=== PATIENT | female | born 1935 | race Caucasian/White ===

== ENCOUNTER → 2017-02-24 | Outpatient (CLI) | payer OTHER | LOC: BRMIMAGING 13:57 | PROVIDERS: ATTEND Family Medicine | DX: M81.8 Other osteoporosis without current pathological fracture (principal) ==

== ENCOUNTER → 2017-12-09 | Outpatient (CLI) | payer OTHER | LOC: CIMAGING 15:25 | PROVIDERS: ATTEND Family Medicine | DX: R07.81 Pleurodynia (principal) | CPT/HCPCS: 71101-PO ==

== ENCOUNTER → 2018-07-14 | Outpatient (CLI) | payer OTHER | LOC: FIMAGING 11:59 | PROVIDERS: ATTEND Internal Medicine Hematology & Oncology | DX: M81.0 Age-related osteoporosis without current pathological fracture (principal); D47.2 Monoclonal gammopathy; M50.322 Other cervical disc degeneration at C5-C6 level; M41.84 Other forms of scoliosis, thoracic region; M43.14 Spondylolisthesis, thoracic region; M51.36 Other intervertebral disc degeneration, lumbar region; M51.37 Other intervertebral disc degeneration, lumbosacral region; M19.012 Primary osteoarthritis, left shoulder; M19.011 Primary osteoarthritis, right shoulder; M19.042 Primary osteoarthritis, left hand; M19.041 Primary osteoarthritis, right hand; M17.11 Unilateral primary osteoarthritis, right knee; M11.261 Other chondrocalcinosis, right knee; M19.071 Primary osteoarthritis, right ankle and foot ==

== ENCOUNTER → 2018-09-22 | Outpatient (CLI) | payer OTHER | LOC: CIMAGING 15:00 | PROVIDERS: ATTEND Family Medicine | DX: R06.02 Shortness of breath (principal); D47.2 Monoclonal gammopathy; M89.8X1 Other specified disorders of bone, shoulder | CPT/HCPCS: 71046-PO ==

== ENCOUNTER 2019-01-12 12:49 | Inpatient (IN) | payer OTHER ==
[2019-01-12] MEDS ORDERED: ONDANSETRON DISINTEGRATING 4 MG TAB PO PRN (13:06)
[2019-01-12] MEDS ORDERED: ONDANSETRON 4 MG/2 ML VIAL IVP PRN (13:06)
--- NOTE | 2019-01-12 13:12 | PDGENHP ---
<Mera Christensen - Last Filed: 01/12/19 15:13> History and Physical - Chief Complaint Multiple myeloma, intractable neuropathy BLE - History of Present Illness 83 y/o female w/recently diagnosed (June 2018) stage I IgG lambda, HTN, paroxysmal atrial fibrillation and chronic diastolic congestive heart failure is directly admitted from [facility] experiencing intractable thigh pain and new weakness. She reports to me for the last few weeks, she experiences anterior bilateral thigh soreness w/severity of 5-6/10 usually occurring at nighttime, occasionally the soreness migrates to her knees. She rubs her legs which feels good but does not relieve the soreness and she has difficulty falling asleep because it causes restless legs. She has tried several OTC medication to alleviate w/no success including Tylenol PM, ibuprofen, Benadryl. Her leg strength has also diminished to the point where she lives a sedentary lifestyle and requires a wheelchair to get around instead of her usual walker. Denies any trauma or falls within the last few weeks. Denies saddle paraesthesia, urinary incontinence, diarrhea or constipation. She does have a history of neuropathy in her hands and feet but this problem is new. She tried gabapentin for a week recently and has not noticed any differences. She did not try the suggested alpha lipoic acid. Denies CP, palpitations, nausea, vomiting, fever. Today at [facility], she did not take Velcade and was told to not take Revlimid today. In November of this year, she had c/o JONES. She was evaluated by her kelp gatherer, Dr. Tabares, who ultimately did not believe JONES was cardiac related and most likely r/t treatment for multiple myeloma and/or deconditioned. Echo in September 2018 revealed LVEF 65%, moderate LVH w/diastolic dysfunction, mild- moderate MR w/o MV prolapse, mild TR and estimated normal PA pressures. On January 05, 2019, she was at [facility] for cycle 6-day 15 of Velcade chemotherapy. She was on her off week of Revlimid and restarted it on January 08. She takes Revlimid days 1-14 of a 21-day cycle. She had c/o increasing BLE peripheral neuropathy w/ her bed sheets bothering the top of her feet. Velcade was held 2/ 2 neuropathy complaints. She was started on gabapentin @ and suggested to supplement w/ alpha lipoic acid. She is being admitted for further work-up, treatment and monitoring. History Information - Allergies/Home Medication List Allergies/Adverse Reactions: Penicillins Allergy (Verified 01/12/19 14:29) Unknown Home Medications: Levothyroxine [Synthroid 75 mcg (*)] 75 mcg PO DAILY06 11/25/13 [Last Taken ] Aspirin [Aspirin 81mg (*)] 81 mg PO DAILY 01/12/19 [Last Taken 01/12/19] C/E/Zn/Cu/OM3/DHA/EPA/LUT/ZEAX [Preservision Areds 2 Softgel] 1 each PO BID [Last Taken 01/12/19] Calcium Carb W/Vit D [Calcium Carb W/Vit D 500/200 (*)] 500 mg PO DAILY@12 01/12 [Last Taken 01/11/19] Cholecalciferol Vit D3 [Vitamin D3 (*)] 1,000 units PO DAILY 01/12/19 [Last Taken 01/12/19] Furosemide [Lasix 20 MG (*)] 30 mg PO DAILY 01/12/19 [Last Taken 01/12/19] Gabapentin [Neurontin 100 MG (*)] 200 mg PO HS 01/12/19 [Last Taken 01/11/19] Lenalidomide [Revlimid] 15 mg PO AD@12 01/12/19 [Last Taken 01/11/19] Losartan Potassium [Cozaar 25 mg (*)] 25 mg PO DAILY 01/12/19 [Last Taken ] Metoprolol Succinate Xr [Toprol Xl 100 mg (*)] 200 mg PO DAILY 01/12/19 [Last Taken 01/12/19] I have personally reviewed and updated: family history, medical history, social history, surgical history - Past Medical History atrial fibrillation (PAF), cancer (Stage I IgG lambda), CHF (Diastolic), osteoporosis - Surgical History Reports: hysterectomy Additional surgical history: Left hip fx w/ repair last year. Left ankle and wrist fx - Family History Positive for: CAD, hypertension - Social History Smoking Status: Never smoked Alcohol Use: Rarely Drug Use: None Additional social history: Lives in [place], [place]. . 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 Reviewed past records from Dr. Connor and Dr. Tabares. Constitutional: no apparent distress, appears nourished, uncomfortable Eyes: PERRL, anicteric sclera, EOMI Ears, Nose, Mouth, Throat: moist mucous membranes, hearing normal, ears appear normal, no oral mucosal ulcers Cardiovascular: regular rate and rhythym, no murmur, rub, or gallop, No edema Peripheral Pulses: 2+: dorsalis-pedis (R) (Radial 2+), dorsalis-pedis (L) ( Radial 2+) Respiratory: no respiratory distress, no rales or rhonchi, clear to auscultation Gastrointestinal: soft, non-tender abdomen, no palpable masses, other ( Hypoactive BS) Genitourinary: no bladder fullness, no bladder tenderness Skin: warm, normal color, no rashes or abrasions, no fluctuance, no induration, No mottled Musculoskeletal: muscular tenderness (Described as soreness but feels good when she massages the area. Massaging the area does not alleviate the soreness.), generalized weakness (Bilateral lower extremities L > R weakness. +DF/PF, able to wiggle toes, has normal sensation to BLE. Unable to perform straight leg raises, weak dustin knee flexion) Neurologic: AAOx3, weakness (BLE weak quad strength motor strength L 2/5, R 3/ 5. BUE intact motor strength 5/5. ), CN II-XII Intact Psychiatric: interacting appropriately, not anxious, not encephalopathic, thought process linear Lymph, Heme, Immunologic: no cervical LAD, no supraclavicular LAD Assessment & Plan Assessment: 83 y/o female presenting as a direct admit from [facility] w/ progressively worsening bilateral anterior thigh soreness, severity 5-6/10 usually occurring at nighttime and causing sleepless nights d/t restless legs and bilateral lower extremity weakness to the point where a wheelchair is needed instead of her usual walker. It was initially thought Velcade was the culprit however one week after skipping a dose, she continues to be symptomatic. She is hemodynamically stable w/vitals of BP 102/40, HR 55, Resp 16, 95% RA, 36.4c #Multiple myeloma #Iron-deficient anemia #Bilateral lower extremity pain and weakness #Osteoporosis #PAF #HTN #Diastolic CHF Plan: -MRI Lumbar w/wo IV contrast to r/o infection, mass, inflammation as cause of bilateral lower extremity weakness -PT/OT to evaluate and treat -Oncology consult; Dr. Connor w/ evaluate pt tomorrow -CBC/CMP in AM and Magnesium chem now -Daily weight -Cont all home medications except for Revlimid, Losartan, Metoprolol. She has been on Revlimid since August 2018 and her problem began a few weeks ago which I do not believe there is a correlation and Revlimid is the culprit however I will hold the medication from the recommendation of Dr. Connor. It appears she started on Losartan on 12/07/18 and began having symptoms shortly after. A possible side effect is asthenia. She took Losartan today. Initial vitals BP is hypotensive and bradycardic therefore I am holding her metoprolol in the AM. However, if throughout the night and into AM her vitals improve, metoprolol may be initiated. -She received 1 dose of Feraheme for iron-deficient anemia on 01/05/19 -In regards to her PAF, she was on Xarelto but stopped 8-10 months ago. PAF was believed to be brought on by complications of her left hip fx and surgery which subsequently became infected where she needed to stay 3 months in SNF. She does take ASA 81 mg. -Pain management PO w/ Tylenol and gabapentin -Trazodone @ HS to help w/sleep Diet: Cardiac VTE ppx: Lovenox subq Code: Full Dispo: Admit to inpatient <Berto Parr - Last Filed: 01/12/19 22:49> History and Physical - History of Present Illness Review of Systems Review of Systems: Physical Exam Physical Exam: Temp Pulse Resp BP Pulse Ox 36.6 C 53 L 18 134/54 H 94 01/12/19 19:29 01/12/19 19:29 01/12/19 19:29 01/12/19 19:29 01/12/19 19:29 Lab Data & Imaging Review 01/12/19 19:30 Hct 33.8 % (38.0-47.0) L 01/12/19 19:30 ESR 2 MM/HR (0-30) 01/12/19 19:30 Magnesium 2.1 mg/dL (1.6-2.3) 01/12/19 19:30 Creatine Kinase 38 IU/L (0-156) 01/12/19 19:30 C-Reactive Protein < 5.0 mg/L (<10.0) 01/12/19 19:30 Assessment & Plan Assessment: I have seen the patient and reviewed with Linda Christensen VALIDATION SCIENTIST today. I agree with Ms Christensen's assessment except for one detail: The patient does have bilateral anterior thigh pain present for 3 weeks, but her weakness is only in the L quadraceps group and this weakness has been present for 1 year +. We have ruled out spine and hip joint related causes of the new pain. The cause is still under investigation.
--- NOTE | 2019-01-12 16:01 | ASMTCMCOM ---
CM Note CM Note Notes: Chart reviewed for discharge planning purposes. Patient is admitted with bilateral neuropathic pain in anterior thighs and restless leg syndrome and lower extremity weakness. Normally lives with her . Has declines from walker ti wheelchair. Needs to be determined. Plan: TBD Date Signed: 01/12/2019 04:01 PM Electronically Signed By:Latonya Barros RN
[2019-01-12] MEDS ORDERED: GADOBUTROL 10 ML VIAL IVP ONE (16:18)
[2019-01-12] MEDS: CALCIUM CARB W/VIT D 500 MG TAB PO SCH (17:21)
[2019-01-12 20:03] LABS: CREATINE KINASE 38 IU/L (0-156)
[2019-01-12] MEDS ORDERED: GABAPENTIN 100 MG CAP PO SCH (21:00)
[2019-01-12] MEDS: traMADol 50 MG TAB PO PRN (21:39)
[2019-01-12] MEDS: traZODone 50 MG TAB PO SCH (21:40)
[2019-01-12] MEDS: PRESERVISION AREDS2 FORMULA EYE VIT 1 EACH PO SCH (21:41)
--- NOTE | 2019-01-12 23:03 | HOSPPROG ---
Hospitalist Progress Note Assessment/Plan: This patient is admitted with 3 weeks of gradually worsening bilateral anterior thigh pain. The pain is making mobility very difficult for her. She describes a "stretching, cramping sensation" that waxes and wanes, and is aggravated by being up on her feet to a degree. There is nothing that sounds like a neuropathic pain. There is no pain elsewhere, there is no fever, and there was no injury. No abd, bladder, or bowel symptoms. There is no new weakness associated with this pain. Notably she has chronic L quadraceps weakness present for > 1 year, related to previous surgeries for infected knee arthroplasty. No other new symptoms. My exam shows evidence of the marked L quadraceps weakness which is chronic, but no other weakness. There is no palpable or visible soft tissue abnormality that explains her bilateral thigh pain, and the joints are only remarkable for chronic DJD/surgical changes. I found no shoulder weakness or tenderness MRI has been done of LS spine and there is some bilateral SI joint arthropathy - ? if this could be causing spine pain. There is minimal degenerative disc dz and no sign of nerve impingement (her pain does NOT sound neuropathic). XRays of the hips show some DJD but no avascular necrosis or signs of infection (she has myeloma and has had some steroid) ASSESSMENT: -Bilateral Anterior Thigh Pain, described as crampy, stretching sensation Diff Dx: -SI arthropathy? unlikely but SI pain can refer to thighs -Polymyalgia Rheumatica? possible but shoulders currently unaffected; evaluation with ESR could be misleading w her Myeloma -Myositis? seems unlikely but hard to rule out at present PLANS: -check ESR and CRP, but interpret with caution in setting of myeloma -check CPK -[facility] has asked for neurology consult -an orthopedic consult may also be helpful Objective: Vital Signs Temp Pulse Resp BP Pulse Ox 36.6 C 53 L 18 134/54 H 94 01/12/19 19:29 01/12/19 19:29 01/12/19 19:29 01/12/19 19:29 01/12/19 19:29 Laboratory Results 01/12/19 19:30 01/11/19 01/12/19 01/13/19 06:59 06:59 06:59 Intake Total 100 Balance 100 ICD10 Worksheet Patient Problems: Problems Problem Status Onset Leg pain Acute - ICD10 Problem Qualifiers (1) Leg pain
[2019-01-13] MEDS: ACETAMINOPHEN 325 MG TAB PO PRN ×2 (01:20→08:53)
[2019-01-13] MEDS: traMADol 50 MG TAB PO PRN ×2 (03:47→16:40)
[2019-01-13 04:15] LABS: PLATELET COUNT 201 10^3/uL (150-400)
[2019-01-13] MEDS: LEVOTHYROXINE 75 MCG TAB PO SCH (05:55)
[2019-01-13] MEDS: ENOXAPARIN 40 MG/0.4 ML SYR SC SCH (08:49)
[2019-01-13] MEDS: FUROSEMIDE 20 MG TAB PO SCH (08:49)
[2019-01-13] MEDS: ASPIRIN 81 MG CHEWABLE TAB PO SCH (08:49)
[2019-01-13] MEDS: CHOLECALCIFEROL VIT D3 1,000 UNITS TAB PO SCH (08:49)
[2019-01-13] MEDS: PRESERVISION AREDS2 FORMULA EYE VIT 1 EACH PO SCH ×2 (08:49→21:21)
[2019-01-13] MEDS ORDERED: METOPROLOL SUCCINATE XR 100 MG TAB PO SCH (09:00)
[2019-01-13] MEDS: LOSARTAN POTASSIUM 25 MG TAB PO SCH (10:53)
[2019-01-13] MEDS: CALCIUM CARB W/VIT D 500 MG TAB PO SCH (11:58)
--- NOTE | 2019-01-13 12:10 | GCON ---
[f rep st] CONSULTATION HEMATOLOGY/ONCOLOGY CONSULTATION NOTE. DATE OF CONSULTATION: 01/13/2019 REASON FOR CONSULTATION: History of multiple myeloma, admitted with increasing bilateral leg pain. HISTORY OF PRESENT ILLNESS: The patient is a very pleasant, 83-year-old female who was diagnosed wit h an IgG lambda multiple myeloma in June of 2018. This was initially identified when she was be ing evaluated for hypercalcemia which eventually resolved with cessation of calcium supplements, but additional lab workup revealed a monoclonal protein of the IgG lambda type, measuring 3.4 g/dL. Bone marrow biopsy at that time showed 40% cellularity with 50% of the cells consistent with a lambda res tricted clonal population. 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 There was a small foci suspicious but not diagnostic for amyloid deposition. UPEP showed normal 24 hour protein at 224 mg with an IgG lambda of 94 mg. A skeletal survey showed diffu se osteoporosis with mottled lucency, but there were no discrete lytic lesions. She was started on a "RVD-lite" in August of 2018. This is a modified regimen with Revlimid, Velcade, and dexamethason e that is dose reduced for the elderly. Within the 1st few weeks of treatment, she developed signifi cant fluid retention and was felt to have volume overload consistent with diastolic dysfunction, like ly precipitated by the steroids. She was seen in consultation by Dr. Feliz and started on Lasix diu retic. The cardiac issues have not been an issue since. She was started on monthly Zometa in [facility]. Approximately 3 weeks ago, patient started developing significant bilateral thigh pain. She describe s it worse at night. The pain has progressively gotten more severe. It has now extended down to the knee. It does not appear to be classic for peripheral neuropathy in that it did not start initially in the feet and move up. She has chronic left thigh and quadriceps weakness due to prior left knee replacement with infected left knee arthroplasty. She has typically been using a walker, but more re cently has not been able to even move through the house. In part, she describes having weakness due to the pain. She has had no fevers or chills. She was to receive Velcade last week, but due to conc herrera that this could represent some type of an atypical neuropathy that was discontinued. She has bee n on Revlimid 15 mg day 1 through 14 with 1 week off. She denies any chest pain or shortness of yariel th. She was seen in the office yesterday and due to increasing bilateral thigh pain and difficulty ambula ting, she was admitted for further evaluation. Of note, she was started on low-dose gabapentin a week ago, taking 200 mg at night. That has not see med to be of any benefit. The dexamethasone dose as part of the regimen is 20 mg once a week. PAST MEDICAL HISTORY: Osteoporosis, bilateral hearing loss, psoriasis, diastolic dysfunction, infect ed left knee arthroplasty. PAST SURGICAL HISTORY: Cataract surgery, total left knee replacement in January 2015, femur fracture r epair in September of 2015, removal of a large lipoma from her left axilla in 2012. Prior hysterectom y, cholecystectomy, appendectomy, and . FAMILY HISTORY: Noncontributory. SOCIAL HISTORY: She is to Ed. She does not smoke cigarettes and she drinks alcohol rarely. She and Ed live in [place]. 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 REVIEW OF SYSTEMS: A 10-point review of systems is negative other than noted in HPI. PHYSICAL EXAM: GENERAL: She is very uncomfortable appearing female. HEENT: Pupils are equal. HEA RT: Regular rate. LUNGS: Clear to auscultation. ABDOMEN: Soft, nontender. NEURO: Generalized w eakness, left hip flexor more weak than the right. She has normal sensation in her lower extremities . LYMPHS: No adenopathy. IMPRESSION: This is an 83-year-old female diagnosed with an IgG lambda multiple myeloma last fall, r eceiving therapy with Velcade, Revlimid, and dexamethasone, who now presents with increasing bilatera l thigh pain. With regard to the myeloma, patient has had an excellent response and generally has to lerated therapy quite well. The most recent M spike measured 0.7 g/dL, down from 3.4 g/dL. The etiology of the bilateral thigh pain is unclear. This would be an atypical presentation for Velc kishan induced peripheral neuropathy. It is also much less common when given in the subcutaneous form, which is the way that she has been receiving it. This would also be an unusual side effect of the Re vlimid. Lumbar MRI does not show any obvious explanation for her symptoms. Neurology has been consu lted. There is no evidence of a myositis with a normal CPK. For now, we will hold the Revlimid, the dexamethasone and continue to hold the Velcade. We will cont inue to follow along with you. /[id number]/MODL
--- NOTE | 2019-01-13 14:01 | HOSPPROG ---
Hospitalist Progress Note Assessment/Plan: This patient is admitted with 3 weeks of gradually worsening bilateral anterior thigh pain. The pain is making mobility very difficult for her. She describes a "stretching, cramping sensation" that waxes and wanes, and is aggravated by being up on her feet to a degree. There is nothing that sounds like a neuropathic pain. There is no pain elsewhere, there is no fever, and there was no injury. No abd, bladder, or bowel symptoms. There is no new weakness associated with this pain. Notably she has chronic L quadraceps weakness present for > 1 year, related to previous surgeries for infected knee arthroplasty. MRI has been done of LS spine and there is some bilateral SI joint arthropathy - ? if this could be causing spine pain. There is minimal degenerative disc dz and no sign of nerve impingement (her pain does NOT sound neuropathic). XRays of the hips show some DJD but no avascular necrosis or signs of infection (she has myeloma and has had some steroid) ESR and CRP are unremarkable ASSESSMENT: -Bilateral Anterior Thigh Pain, described as crampy, stretching sensation Diff Dx: -SI arthropathy? unlikely but SI pain can refer to thighs -Polymyalgia Rheumatica? possible but shoulders currently unaffected; evaluation with ESR could be misleading w her Myeloma -Myositis? seems unlikely but hard to rule out at present PLANS: -wait neurology consult -PT/OT -consider ortho consult Subjective: no cp or sob. no n/v. still with anterior thigh pain worse at night Objective: Vital Signs Temp Pulse Resp BP Pulse Ox 36.3 C 59 L 16 156/77 H 95 01/13/19 11:14 01/13/19 11:14 01/13/19 11:14 01/13/19 11:14 01/13/19 11:14 Laboratory Results 01/13/19 04:00 01/13/19 04:00 01/12/19 01/13/19 01/14/19 05:59 05:59 05:59 Intake Total 300 Output Total 420 Balance 300 -420 - Physical Exam Constitutional: no apparent distress Eyes: PERRL, EOMI Ears, Nose, Mouth, Throat: moist mucous membranes, hearing normal Cardiovascular: regular rate and rhythym, No edema Respiratory: no respiratory distress, no rales or rhonchi, clear to auscultation Gastrointestinal: normoactive bowel sounds Skin: warm Neurologic: AAOx3 Psychiatric: interacting appropriately, not anxious, not encephalopathic Lymph, Heme, Immunologic: No petechiae ICD10 Worksheet Patient Problems: Problems Problem Status Onset Leg pain Acute
--- NOTE | 2019-01-13 15:11 | GCON ---
[f rep st] CONSULTATION REFERRING PHYSICIAN: Berto Parr MD 2ND REFERRING PHYSICIAN: Dr. Eliane Connor. HISTORY: The patient is an 83-year-old with history of myeloma, congestive heart failure and atrial fibrillation and some other complex orthopedic problems affecting mainly the left leg. She is here i the hospital for intractable pain in the legs that has been present over the last 4 to 6 weeks, at least. She started her chemotherapy treatments in August with Revlimid and has also been treated w ith Velcade with a 6-day cycle initiated January 05. On the , she received Revlimid, but that is n ow currently being held for the question of whether it might be contributing to this syndrome. She s ays that there is pain 09/05, which is rather disabling, and predominantly in the anterior thighs, but can be around the knees and then sometimes radiate to the anterior leg, which she says feels like sh in splints. It can be very difficult at night, particularly, and interrupts sleep. She is getting v pauly limited sleep and her mobility has declined in association with this increasing pain. She has ch ronic left leg weakness in the quadriceps since having a femur fracture and complex issues related to that and multiple surgeries and basically has a very limited left quadriceps function. That is not new. What is more difficult now is getting up from seated positions and more weakness in the legs wi thout clear effects in the upper extremities. She does not feel so much as she has lost sensation. Although she has been noted to have some mild n europathy, it has not been prominent in terms of distal weakness or distal sensory loss. No change i n bowel or bladder function. She has had MRI of the lumbar spine, which reveals some mild degenerati ve changes but no significant central or foraminal stenoses. She is on some low doses of tramadol and gabapentin currently 200 mg a day and really is getting no r elief. Tylenol is not helping. Her says she is eating this like candy without benefit. CURRENT MEDICATION: Aspirin, Lovenox, Lasix, gabapentin 200 mg at night. Tramadol 50 mg every 6 berta rs as needed for pain. PHYSICAL EXAM: VITAL SIGNS: Blood pressure is 173/77, heart rate of 58, respirations 16, temperatur e 36.6. GENERAL: She is sitting in the chair in no acute distress, although she says there is still some significant pain. She is able to communicate effectively without cognitive impairment. There is wasting of the left quadriceps, which is severe and associated severe weakness with essentially on ly trace movements and cannot overcome gravity on the left quadriceps testing. Left hip flexion stre ngth is in the 3/5 to 4/5 range. Distal strength in the left lower extremity is a solid 4/5 and at l east that or greater in the right dorsiflexion and plantar flexion as well as the right quadriceps an d hip flexion, although there is some mild weakness there. Her adductor strength is strong, 4/5, as well as abduction. Gluteus and hamstring strength is 4/5 bilaterally. She has loss of vibration at the left great toe, but preserved on the right. There is a mild distal deficit for pinprick or tempe rature, but not profound. Reflexes are absent. No Babinski signs. Her sedimentation rate is 2. The C-reactive protein is less than 5. CK level is 38. Otherwise unre markable electrolytes. IMPRESSION: Total unit time of 50 minutes. The patient has myeloma and subacute and persisting pain syndrome in the femoral distribution predominantly of both legs, and weakness which is chronic in th e proximal left lower extremity, and some increasing weakness in the right lower extremity as well wi thout a definitive explanation for this precise syndrome. The MRI rules out a structural lesion. Th e degree of peripheral neuropathy she has in the distal lower extremities is fairly mild. The relati vely profound degree of neuropathic pain likely reflects some toxicity from 2 known neurotoxic drugs that she has received in her chemotherapy with the Velcade and Revlimid. The atypical aspect is the fact that it is not in the more distal, classic peripheral nerve distribution and following more of a femoral distribution. I will look in the literature to see if there are any comments on having femo ral or plexitis syndromes in a case like this, but either way, I think it is appropriate to hold the drugs for now, if possible, to see if there can be some improvement. Her greatest complaint is pain and this is causing severe disability and now making her less active and she is at risk of progressiv e weakness from relative inactivity. She is also becoming sleep deprived. I think her dosing can sa jazzy be significantly increased on a gradual basis and titrating towards adequate pain relief. Paulinaev er, I would recommend the tramadol be 1 or 2 tablets 3 times a day as needed for pain. I also think the gabapentin should be converted to 300 mg 3 times a day, but do this also gradually. Even that is not a high dose and might be needed to help control the symptoms as she hopefully will improve gradu ally and be able to do more physical activity. As an outpatient, I can do EMG to see if there is any thing more specific about this. As Dr. Parr very carefully assessed, there is a question of whethe r it is true neuropathic pain or may be related to joints and connective tissue related issues, but w e do not see anything specifically to explain that and sedimentation rate and C-reactive protein are normal. CK is normal. I do not think it is a primary inflammatory myopathy. /[id number]/MODL
[2019-01-13] MEDS: GABAPENTIN 100 MG CAP PO SCH ×2 (15:49→21:20)
[2019-01-13] MEDS: traZODone 50 MG TAB PO SCH (21:21)
[2019-01-14] MEDS: traMADol 50 MG TAB PO PRN ×2 (02:08→10:41)
[2019-01-14] MEDS: ACETAMINOPHEN 325 MG TAB PO PRN (05:09)
[2019-01-14] MEDS: LEVOTHYROXINE 75 MCG TAB PO SCH (05:09)
[2019-01-14] MEDS: LOSARTAN POTASSIUM 25 MG TAB PO SCH (08:33)
[2019-01-14] MEDS: CHOLECALCIFEROL VIT D3 1,000 UNITS TAB PO SCH (08:34)
[2019-01-14] MEDS: PRESERVISION AREDS2 FORMULA EYE VIT 1 EACH PO SCH ×2 (08:34→21:12)
[2019-01-14] MEDS: FUROSEMIDE 20 MG TAB PO SCH (08:34)
[2019-01-14] MEDS: GABAPENTIN 100 MG CAP PO SCH ×3 (08:34→21:13)
[2019-01-14] MEDS: ASPIRIN 81 MG CHEWABLE TAB PO SCH (08:34)
--- NOTE | 2019-01-14 09:31 | NEUROPROG ---
Assessment: Today's 25 min visit was predominantly counseling regarding her condition and management strategies for this neuropathic pain syndrome in the setting of multiple myeloma which is responding to chemotherapy but presumably has neuropathic consequences from the toxicity of the agents. The MRI did not reveal any evidence of myeloma specific lesions or compressive lesions in the lumbosacral spine or cauda equina. Microscopic changes cannot be definitively ruled out. She has tolerated the increased dosage of gabapentin but is not getting definite benefit yet, so I will increase the dosage to 300 mg 3 times per day. She is encouraged to continue the tramadol 100 mg 3 times per day. I do not have a definitive answer as to how quickly we can control this or the exact prognosis at this stage and we will see how she response to these medications. Again, I am happy to see her in follow-up as an outpatient to continue to try to help her. If additional assistance is needed during this hospitalization, please contact my colleague who will be coming research instrumentation technician tomorrow , Dr. Henao. You can also contact me with any questions directly. Subjective: The patient is reporting that she slept from about 930 until 2 in the morning with fairly good pain control but developed rather intractable pain during the night in the legs and the pain can go all the way down to the feet, mainly in the dorsum. There is not new weakness. She ambulated yesterday using her walker with therapy and felt that she was probably walking a little bit better than she has. If she stays fairly still, the degree of pain is sometimes a little less. She still has some problem with urinary incontinence which isn't a new issue. Objective: Vital Signs Temp Pulse Resp BP Pulse Ox 36.5 C 64 16 166/78 H 92 01/14/19 08:26 01/14/19 08:26 01/14/19 08:26 01/14/19 08:33 01/14/19 08:26 Laboratory Results 01/13/19 04:00 01/13/19 04:00 01/13/19 01/14/19 01/15/19 05:59 05:59 05:59 Intake Total 300 600 Output Total 520 Balance 300 80 She continues to have a reflexia with the same degree of weakness as before and diminished sensation but not profound sensory loss. Allergies/Adverse Reactions: Penicillins Allergy (Verified 01/12/19 14:29) Unknown
[2019-01-14] MEDS: ENOXAPARIN 40 MG/0.4 ML SYR SC SCH (09:42)
--- NOTE | 2019-01-14 10:26 | PDMN ---
Medical Necessity Medical necessity: [facility] [place] [facility] musculoskeletal disease: - 83yoF with PMHX: mult myeloma- receiving tx presently- osteoporosis, bilat hearing loss, psoriasis, diastolic dysfunction, infected L knee arthroplasty presents with 3 weeks sig. bilat thigh pain. extends down to knee -unable to ambulate thru her house. onc. consult, neurology consult, ortho consult anticipate > 2 MN ongoing med nec care- further monitoring eval and tx. PT,OT
[2019-01-14] MEDS: CALCIUM CARB W/VIT D 500 MG TAB PO SCH (12:36)
--- NOTE | 2019-01-14 13:45 | HOSPPROG ---
Hospitalist Progress Note Assessment/Plan: This patient is admitted with 3 weeks of gradually worsening bilateral anterior thigh pain. The pain is making mobility very difficult for her. She describes a "stretching, cramping sensation" that waxes and wanes, and is aggravated by being up on her feet to a degree. There is nothing that sounds like a neuropathic pain. There is no pain elsewhere, there is no fever, and there was no injury. No abd, bladder, or bowel symptoms. There is no new weakness associated with this pain. Notably she has chronic L quadraceps weakness present for > 1 year, related to previous surgeries for infected knee arthroplasty. MRI has been done of LS spine and there is some bilateral SI joint arthropathy - ? if this could be causing spine pain. There is minimal degenerative disc dz and no sign of nerve impingement (her pain does NOT sound neuropathic). XRays of the hips show some DJD but no avascular necrosis or signs of infection (she has myeloma and has had some steroid) ESR and CRP are unremarkable ASSESSMENT: -Bilateral Anterior Thigh Pain, described as crampy, stretching sensation Diff Dx: -SI arthropathy? unlikely but SI pain can refer to thighs -Polymyalgia Rheumatica? possible but shoulders currently unaffected; evaluation with ESR could be misleading w her Myeloma -Myositis? seems unlikely but hard to rule out at present, CK WNL during admission PLANS: - Neurology consulted, increased Gabapentin to 300 TID today, continue Tramadol q6 hours -PT/OT recommending home care Dispo: Pending clinical course Subjective: Patient reports pain in b/l LE Objective: Vital Signs Temp Pulse Resp BP Pulse Ox 36.5 C 64 16 166/78 H 92 01/14/19 08:26 01/14/19 08:26 01/14/19 08:26 01/14/19 08:33 01/14/19 08:26 Laboratory Results 01/13/19 04:00 01/13/19 04:00 01/13/19 01/14/19 01/15/19 05:59 05:59 05:59 Intake Total 300 600 360 Output Total 520 Balance 300 80 360 - Physical Exam Constitutional: no apparent distress Eyes: PERRL Ears, Nose, Mouth, Throat: moist mucous membranes Cardiovascular: regular rate and rhythym Respiratory: no respiratory distress Gastrointestinal: soft, non-tender abdomen Skin: warm Musculoskeletal: full muscle strength Neurologic: AAOx3 Psychiatric: interacting appropriately ICD10 Worksheet Patient Problems: Problems Problem Status Onset Leg pain Acute Neuropathy associated with cancer Acute
--- NOTE | 2019-01-14 14:11 | SOAPPROG ---
SOAP Progress Note Assessment/Plan: Assessment: 1. Bilateral thigh pain-likely unusual presentation of neuropathy, either secondary to velcade or revlimid. 2. Mulitple myeloma-has had good response to RVD-lite. Plan: 1. Gabapentin and tramadol increase. 2. Will hold myeloma therapy for now. 3. Anemia-multifactorial. no indication for transfusion 01/14/19 14:09 01/14/19 14:11 Subjective: slept well until 2 AM, but up with severe pain after that. Objective: Vital Signs Temp Pulse Resp BP Pulse Ox 36.5 C 64 16 166/78 H 92 01/14/19 08:26 01/14/19 08:26 01/14/19 08:26 01/14/19 08:33 01/14/19 08:26 Laboratory Results 01/13/19 04:00 01/13/19 04:00 01/13/19 01/14/19 01/15/19 05:59 05:59 05:59 Intake Total 300 600 360 Output Total 520 Balance 300 80 360 Physical Exam - Physical Exam General Appearance: alert, no apparent distress Neck: supple Respiratory: lungs clear Abdomen: soft Extremities: No pedal edema ICD10 Worksheet Patient Problems: Problems Problem Status Onset Leg pain Acute Neuropathy associated with cancer Acute
--- NOTE | 2019-01-14 17:48 | ASMTCMCOM ---
CM Note CM Note Notes: Patient discussed during clinical rounds, neuro to consult. PT/OT recommending Home Care. CM to follow. D/C plans: HC Date Signed: 01/14/2019 05:48 PM Electronically Signed By:Christin Scales
[2019-01-14] MEDS: traZODone 50 MG TAB PO SCH (21:12)
[2019-01-15] MEDS: LEVOTHYROXINE 75 MCG TAB PO SCH (06:36)
[2019-01-15] MEDS: traMADol 50 MG TAB PO PRN ×2 (06:36→11:29)
[2019-01-15 07:47] VITALS: BP 159/79
[2019-01-15] MEDS: PRESERVISION AREDS2 FORMULA EYE VIT 1 EACH PO SCH (08:25)
[2019-01-15] MEDS: GABAPENTIN 100 MG CAP PO SCH (08:25)
[2019-01-15] MEDS: FUROSEMIDE 20 MG TAB PO SCH (08:25)
[2019-01-15] MEDS: LOSARTAN POTASSIUM 25 MG TAB PO SCH (08:25)
[2019-01-15] MEDS: CHOLECALCIFEROL VIT D3 1,000 UNITS TAB PO SCH (08:25)
[2019-01-15] MEDS: ASPIRIN 81 MG CHEWABLE TAB PO SCH (08:25)
[2019-01-15] MEDS: ENOXAPARIN 40 MG/0.4 ML SYR SC SCH (08:48)
--- NOTE | 2019-01-15 11:07 | ASMTLACE ---
LACE Length of stay for Answers: 2 days current admission Comorbidities - select Answers: Any tumor (including all that apply lymphoma or leukemia) Score: 4 Date Signed: 01/15/2019 11:03 AM Electronically Signed By:Latonya Barros RN
--- NOTE | 2019-01-15 11:11 | PDIAF ---
- Diagnosis Diagnosis: B/l muscle weakness Code Status: Full Code - Medication Management Discharge Medications: electronically signed and located in the Home Medication List. - Orders Services needed: Home Care, Physical Therapy, Occupational Therapy Home Care Face to Face: I certify that this patient was under my care and that I had the required [id number] encounter meeting the encounter requirements on the discharge day. My findings support the fact that the patient is homebound as defined in Home Care Face to Face Continued: CMS Chapter 7 Medicare Benefits Manual 30.1.1 , The condition of the patient is such that there exists a normal inability to leave home and consequently, leaving home would require a considerable and taxing effort. Isolation Type: Chemotherapy Isolation - Follow Up Care Current Providers and Referrals: Darron Plascencia MD [Primary Care Provider] - Ishaan Ascencio MD [Medical Doctor] -
--- NOTE | 2019-01-15 11:28 | ASMTCMCOM ---
CM Note CM Note Notes: Patient plan of care discussed in am rounds. 83 year old female with multiple myeloma admitted with intractable thigh pain thought to be related to chemotherapy. Ready for dc. Therapies recommending HHC. Met with patient and her . They cannot recall previous company. Referrals sent in allscripts. [facility] accepting. CM available should other needs arise. Plan: Home with HHC. Date Signed: 01/15/2019 11:08 AM Electronically Signed By:Latonya Barros RN
--- NOTE | 2019-01-15 12:27 | PDDCSUM ---
Discharge Summary Discharge Summary: Date of Admission: 01/12/2019 Date of Discharge: 01/15/2019 Consults: Oncology, Neurology Procedures: Lumbar Spine MRI, Hip XR b/l Followup: Oncology, Neurology Hospital Course Problem List: This patient is admitted with 3 weeks of gradually worsening bilateral anterior thigh pain. ASSESSMENT: -Bilateral Anterior Thigh Pain, described as crampy, stretching sensation Diff Dx: -SI arthropathy? unlikely but SI pain can refer to thighs, Hip XR showing OA no acute findings -Polymyalgia Rheumatica? possible but shoulders currently unaffected; no elevation in ESR/CRP -Myositis? seems unlikely but hard to rule out at present, CK WNL during admission PLANS: - Neurology consulted, increased Gabapentin to 300 TID today, continue Tramadol q6 hours - PT/OT recommending home care - MRI has been done of LS spine and there is some bilateral SI joint arthropathy - ? if this could be causing spine pain. There is minimal degenerative disc dz and no sign of nerve impingement (her pain does NOT sound neuropathic). - Oncology consulted, possible SE of chemotherapy, currently on hold, will f/u with primary oncologist for further evaluation and management Time spent on discharge was >35 minutes with >50% of time spent on patient education and counseling.
== END 2019-01-15 11:48 | disposition home health service (06) | DRG 74 ==
LOC: F1N 13:33
PROVIDERS: ADMIT Internal Medicine; ATTEND Internal Medicine
DX: G62.9 Polyneuropathy, unspecified (principal); C90.00 Multiple myeloma not having achieved remission; M12.9 Arthropathy, unspecified; M35.3 Polymyalgia rheumatica; I11.0 Hypertensive heart disease with heart failure; I50.32 Chronic diastolic (congestive) heart failure; I48.0 Paroxysmal atrial fibrillation; Z96.652 Presence of left artificial knee joint
CPT/HCPCS: 97116-GP; 97161-GP; 97165-GO; A9585; J1650

== ENCOUNTER 2019-01-19 15:53 | Inpatient (IN) | payer OTHER ==
--- NOTE | 2019-01-19 15:54 | EDPHY ---
HPI/HX/ROS/PE/MDM Narrative: CHIEF COMPLAINT: Bilateral leg pain HPI: This patient is an 83 year old female with history of multiple myeloma. Recent admission for bilateral leg pain and difficulty walking secondary to this. She felt well at discharge and was able to walk out of the hospital. She initially did well at home but fell on Tuesday and transferred to a rehabilitation facility in [place]. She arrives today via EMS from that facility. She usually walks with a walker but has been unable to for two days due to worsening discomfort. She and her agree that her current symptoms are worse than those during her admission. Her called her oncologist, Dr. Connor, today and staff recommended she present to the ED for further evaluation and possible admission. EMS reports vitals normal in transport, BGL 118. She denies chest pain, shortness of breath, syncope, recent cough or cold, or other associated symptoms. REVIEW OF SYSTEMS: A comprehensive 10 system review of systems is otherwise negative aside from elements mentioned in the history of present illness and medical decision making. PMH: CHF, multiple myeloma, hypothyroid SOCIAL HISTORY: . at bedside. Lives in [place]. PHYSICAL EXAM: General:Patient is alert, in no acute distress. ENT:Eyes are normal to inspection. ENT inspection normal. Neck: Normal inspection. Full range of motion. Respiratory:No respiratory distress. Breath sounds normal bilaterally. Cardiovascular: Regular rate and rhythm. Strong peripheral pulses. Normal cap refill. Abdomen:The abdomen is nontender to palpation. There are no peritoneal signs. There are normal bowel sounds. Back: Normal to inspection. No tenderness to palpation. Skin: Normal color. No rash. Warm and dry. Extremities: Normal appearance. Full range of motion. Neuro: Oriented x3. Normal motor function. Normal sensory function. ED Course: 83 y/o female presents with worsening bilateral leg pain. She was admitted last weekend for similar symptoms, evaluated by neurology and oncology. Plan to consult with patient's oncologist, Dr. Connor. Plan for labs including CBC, chemistries. 17:[address] Connor, oncologist. She recommends admission for further management and evaluation. She notes this was also recommended by the patient's physician at the rehabilitation facility. 17:[address] Naqvi, hospitalist. She accepts admission for bilateral leg pain. - Data Points Laboratory Results: Laboratory Results 01/19/19 16:17 01/19/19 16:17 01/19/19 01/19/19 01/19/19 16:17 16:17 16:17 WBC RBC Hgb Hct 36.5 % L % (38.0-47.0) MCV MCH MCHC RDW Plt Count MPV Neut % (Auto) Lymph % (Auto) Glynn % (Auto) Eos % (Auto) Baso % (Auto) Nucleat RBC Rel Count Absolute Neuts (auto) Absolute Lymphs (auto) Absolute Monos (auto) Absolute Eos (auto) Absolute Basos (auto) Absolute Nucleated RBC Immature Gran % Immature Gran # ESR 13 MM/HR MM/HR (0-30) Sodium 130 mEq/L L mEq/L (135-145) Potassium 4.3 mEq/L mEq/L (3.5-5.2) Chloride 99 mEq/L mEq/L (97-110) Carbon Dioxide 25 mEq/l mEq/l (22-31) Anion Gap 6 mEq/L mEq/L (6-14) BUN 14 mg/dL mg/dL (7-23) Creatinine 0.6 mg/dL mg/dL (0.6-1.0) Estimated GFR > 60 Glucose 97 mg/dL mg/dL (70-100) Calcium 8.4 mg/dL L mg/dL (8.5-10.4) C-Reactive Protein 21.5 mg/L H mg/L (<10.0) 01/19/19 16:17 WBC 6.21 10^3/uL 10^3/uL (3.80-9.50) RBC 3.66 10^6/uL L 10^6/uL (4.18-5.33) Hgb 11.6 g/dL L g/dL (12.6-16.3) Hct 36.0 % L % (38.0-47.0) MCV 98.4 fL fL (81.5-99.8) MCH 31.7 pg pg (27.9-34.1) MCHC 32.2 g/dL L g/dL (32.4-36.7) RDW 16.8 % H % (11.5-15.2) Plt Count 207 10^3/uL 10^3/uL (150-400) MPV 11.0 fL fL (8.7-11.7) Neut % (Auto) 63.4 % % (39.3-74.2) Lymph % (Auto) 20.5 % % (15.0-45.0) Glynn % (Auto) 13.4 % H % (4.5-13.0) Eos % (Auto) 1.1 % % (0.6-7.6) Baso % (Auto) 1.3 % % (0.3-1.7) Nucleat RBC Rel Count 0.0 % % (0.0-0.2) Absolute Neuts (auto) 3.94 10^3/uL 10^3/uL (1.70-6.50) Absolute Lymphs (auto) 1.27 10^3/uL 10^3/uL (1.00-3.00) Absolute Monos (auto) 0.83 10^3/uL H 10^3/uL (0.30-0.80) Absolute Eos (auto) 0.07 10^3/uL 10^3/uL (0.03-0.40) Absolute Basos (auto) 0.08 10^3/uL 10^3/uL (0.02-0.10) Absolute Nucleated RBC 0.00 10^3/uL 10^3/uL (0-0.01) Immature Gran % 0.3 % % (0.0-1.1) Immature Gran # 0.02 10^3/uL 10^3/uL (0.00-0.10) ESR Sodium Potassium Chloride Carbon Dioxide Anion Gap BUN Creatinine Estimated GFR Glucose Calcium C-Reactive Protein Medications Given: Hydromorphone HCl (Dilaudid) 0.1 - 0.2 mg IVP Q1H PRN PRN Reason: Pain, Severe Stop: 01/29/19 18:14 Last Admin: 01/19/19 19:55 Dose: 0.2 mg Multivitamins/Minerals (Preservision Areds2 Formula) 1 each PO BID@12,21 JS Stop: 07/18/19 20:59 Last Admin: 01/19/19 19:55 Dose: 1 each General Initial Vital Signs: Initial Vital Signs Temperature (C) 36.5 C 01/19/19 15:58 Heart Rate 54 L 01/19/19 15:58 Respiratory Rate 16 01/19/19 15:58 Blood Pressure 151/92 H 01/19/19 15:58 O2 Sat (%) 95 01/19/19 15:58 O2 Delivery Mode Room Air Allergies/Adverse Reactions: Penicillins Allergy (Verified 01/19/19 15:57) Unknown Home Medications: Medication Instructions Recorded Levothyroxine [Synthroid 75 mcg 75 mcg PO DAILY06 11/25/13 (*)] Aspirin [Aspirin 81mg (*)] 81 mg PO DAILY 01/12/19 C/E/Zn/Cu/OM3/DHA/EPA/LUT/ZEAX 1 each PO BID@01/12/19 [Preservision Areds 2 Softgel] Calcium Carb W/Vit D [Calcium Carb 500 mg PO DAILY@01/12/19 W/Vit D 500/200 (*)] Cholecalciferol Vit D3 [Vitamin D3 1,000 units PO DAILY@01/12/19 (*)] Furosemide [Lasix 20 MG (*)] 30 mg PO DAILY 01/12/19 Losartan Potassium [Cozaar 25 mg 25 mg PO DAILY 01/12/19 (*)] Metoprolol Succinate Xr [Toprol Xl 200 mg PO DAILY 01/12/19 100 mg (*)] Gabapentin [Neurontin 300 MG (*)] 300 mg PO TID #90 cap 01/15/19 traMADol [Ultram 50 mg (*)] 100 mg PO Q6HRS PRN #90 tab 01/15/19 Acetaminophen [Tylenol 325mg (*)] 650 mg PO Q6 PRN 01/19/19 Herbals/Supplements -Info Only 1 ea PO DAILY 01/19/19 Ibuprofen [Motrin (*)] 200 mg PO Q4H PRN 01/19/19 Departure - Departure Disposition: [facility] Inpatient Acute Clinical Impression: Leg pain Qualifiers: Laterality: bilateral Qualified Code(s): M79.604 - Pain in right leg Condition: Fair Report Scribed for: Rodger Mustafa Report Scribed by: Lisy Oliver Date of Report: 01/19/19 Time of Report: 16:23 Physician Review and Approval Statement: Portions of this note were transcribed by an ED scribe. I personally performed the history, physical exam, and medical decision making; and confirm the accuracy of the information in the transcribed note.
[2019-01-19 16:27] LABS: PLATELET COUNT 207 10^3/uL (150-400)
[2019-01-19] MEDS ORDERED: NS 1,000 ML IV SCH (18:15)
[2019-01-19] MEDS ORDERED: ACETAMINOPHEN 325 MG TAB PO PRN (18:15)
[2019-01-19] MEDS ORDERED: ONDANSETRON 4 MG/2 ML VIAL IVP PRN (18:15)
[2019-01-19] MEDS ORDERED: PROMETHAZINE HCL 25 MG/ML INJ IVP PRN (18:15)
[2019-01-19] MEDS ORDERED: ONDANSETRON DISINTEGRATING 4 MG TAB PO PRN (18:15)
[2019-01-19] MEDS ORDERED: IBUPROFEN 200 MG TAB PO PRN (18:17)
--- NOTE | 2019-01-19 18:26 | PDGENHP ---
History and Physical - Chief Complaint leg pain/unable to walk - History of Present Illness 83 yo F with hx of MM currently undergoing chemotherapy with RVD-lite (revlimid , velcade and dexamethasone dose adjusted for elderly), under the care of Dr. Connor presenting after recent hospital discharge for continued bilateral leg pain. Patient was admitted here last week, discharged on 01/15, for the same issues. Patient and her note that she did not improve very much over the course of that hospitalization and that since discharge her symptoms have gotten worse. She was initially undergoing home PT/OT but then had a fall on Tuesday and given that she seemed overall too weak to be at home, she was transitioned to SNF at [facility]. Her pain continued to worsen and it is now to the point where she really cannot walk at all due to the pain. She states the pain is primarily in her bilateral thighs and calves, left side somewhat worse than the right. It does not involve her feet and never did. She denies any back pain, she denies any numbness or weakness and states the walking issues are due to the pain. She was discharged on gabapentin and tramadol and states that she does not think those medications are doing anything at all. She has not been able to sleep. She was seen both by neurology and oncology at the last hospitalization and had plans to f/u with neurology for nerve testing per her report, but that appointment was not for another month or so. 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 History Information - Allergies/Home Medication List Allergies/Adverse Reactions: Penicillins Allergy (Verified 01/19/19 15:57) Unknown Home Medications: Levothyroxine [Synthroid 75 mcg (*)] 75 mcg PO DAILY06 11/25/13 [Last Taken 03/04] Aspirin [Aspirin 81mg (*)] 81 mg PO DAILY 01/12/19 [Last Taken 01/19/19] C/E/Zn/Cu/OM3/DHA/EPA/LUT/ZEAX [Preservision Areds 2 Softgel] 1 each PO BID@01/12/19 [Last Taken 01/18/19] Calcium Carb W/Vit D [Calcium Carb W/Vit D 500/200 (*)] 500 mg PO DAILY@12 01/12 [Last Taken 01/18/19] Cholecalciferol Vit D3 [Vitamin D3 (*)] 1,000 units PO DAILY@12 01/12/19 [Last Taken 01/18/19] Furosemide [Lasix 20 MG (*)] 30 mg PO DAILY 01/12/19 [Last Taken 01/19/19] Losartan Potassium [Cozaar 25 mg (*)] 25 mg PO DAILY 01/12/19 [Last Taken ] Metoprolol Succinate Xr [Toprol Xl 100 mg (*)] 200 mg PO DAILY 01/12/19 [Last Taken 01/19/19] Acetaminophen [Tylenol 325mg (*)] 650 mg PO Q6 PRN 01/19/19 [Last Taken Unknown] Herbals/Supplements -Info Only 1 ea PO DAILY 01/19/19 [Last Taken Unknown] Ibuprofen [Motrin (*)] 200 mg PO Q4H PRN 01/19/19 [Last Taken Unknown] I have personally reviewed and updated: family history, medical history, social history, surgical history - Past Medical History atrial fibrillation (PAF), cancer (Stage I IgG lambda), CHF (Diastolic), hypertension, osteoporosis Additional medical history: hypothyroid - Surgical History Reports: cholecystectomy, hysterectomy Additional surgical history: Left hip fx w/ repair last year. Left ankle and wrist fx. left TKA. c section. lipoma removal - Family History Positive for: CAD, hypertension - Social History Smoking Status: Never smoked Alcohol Use: Rarely Drug Use: None Additional social history: Lives in [place], [place]. . 5 sons. 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 Systems Review of Systems: ROS: 10pt was reviewed & negative except for what was stated in HPI & below Physical Exam Physical Exam: Temp Pulse Resp BP Pulse Ox 36.5 C 54 L 16 136/108 H 94 01/19/19 15:58 01/19/19 17:44 01/19/19 17:44 01/19/19 17:44 01/19/19 17:44 Constitutional: appears nourished, uncomfortable Eyes: PERRL, anicteric sclera Ears, Nose, Mouth, Throat: moist mucous membranes, hearing normal Cardiovascular: regular rate and rhythym, no murmur, rub, or gallop, edema ( trace ble) Respiratory: no respiratory distress, no rales or rhonchi, clear to auscultation Gastrointestinal: normoactive bowel sounds, soft, non-tender abdomen Genitourinary: no bladder tenderness Skin: warm, normal color Musculoskeletal: muscular tenderness, generalized weakness, No asymmetric calves Neurologic: AAOx3 Psychiatric: interacting appropriately, not anxious, not encephalopathic Lab Data & Imaging Review 01/19/19 16:17 01/19/19 16:17 WBC 6.21 10^3/uL (3.80-9.50) 01/19/19 16:17 RBC 3.66 10^6/uL (4.18-5.33) L 01/19/19 16:17 Hgb 11.6 g/dL (12.6-16.3) L 01/19/19 16:17 Hct 36.0 % (38.0-47.0) L 01/19/19 16:17 MCV 98.4 fL (81.5-99.8) 01/19/19 16:17 MCH 31.7 pg (27.9-34.1) 01/19/19 16:17 MCHC 32.2 g/dL (32.4-36.7) L 01/19/19 16:17 RDW 16.8 % (11.5-15.2) H 01/19/19 16:17 Plt Count 207 10^3/uL (150-400) 01/19/19 16:17 MPV 11.0 fL (8.7-11.7) 01/19/19 16:17 Neut % (Auto) 63.4 % (39.3-74.2) 01/19/19 16:17 Lymph % (Auto) 20.5 % (15.0-45.0) 01/19/19 16:17 Brown % (Auto) 13.4 % (4.5-13.0) H 01/19/19 16:17 Eos % (Auto) 1.1 % (0.6-7.6) 01/19/19 16:17 Baso % (Auto) 1.3 % (0.3-1.7) 01/19/19 16:17 Nucleat RBC Rel Count 0.0 % (0.0-0.2) 01/19/19 16:17 Absolute Neuts (auto) 3.94 10^3/uL (1.70-6.50) 01/19/19 16:17 Absolute Lymphs (auto) 1.27 10^3/uL (1.00-3.00) 01/19/19 16:17 Absolute Monos (auto) 0.83 10^3/uL (0.30-0.80) H 01/19/19 16:17 Absolute Eos (auto) 0.07 10^3/uL (0.03-0.40) 01/19/19 16:17 Absolute Basos (auto) 0.08 10^3/uL (0.02-0.10) 01/19/19 16:17 Absolute Nucleated RBC 0.00 10^3/uL (0-0.01) 01/19/19 16:17 Immature Gran % 0.3 % (0.0-1.1) 01/19/19 16:17 Immature Gran # 0.02 10^3/uL (0.00-0.10) 01/19/19 16:17 Sodium 130 mEq/L (135-145) L 01/19/19 16:17 Potassium 4.3 mEq/L (3.5-5.2) 01/19/19 16:17 Chloride 99 mEq/L (97-110) 01/19/19 16:17 Carbon Dioxide 25 mEq/l (22-31) 01/19/19 16:17 Anion Gap 6 mEq/L (6-14) 01/19/19 16:17 BUN 14 mg/dL (7-23) 01/19/19 16:17 Creatinine 0.6 mg/dL (0.6-1.0) 01/19/19 16:17 Estimated GFR > 60 01/19/19 16:17 Glucose 97 mg/dL (70-100) 01/19/19 16:17 Calcium 8.4 mg/dL (8.5-10.4) L 01/19/19 16:17 Visualized and Interpreted imaging results: Yes Interpretation: L spine MRI from last week with multilevel degenerative changes worst at L4-L5. 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 She has concerns about opiates, but is willing to try low dose opiates for improved pain control , pt/ot consulted. She was to f/u with neurology for further testing as an OP so have requested IP consult, oncology consult also requested # gait instability: due to above, fall this week and patient afraid to even try walking now, was in SNF prior to admit, pt/ot to eval, appears neurologically intact and suspect weakness largely due to above # MM: with recent treatment of RVD-lite but concerns that it was causing neuropathy as above so unclear what future treatment course will be, oncology consulted # diastolic heart failure: with recent issues with decompensation thought due to steroids, trace BLE edema currently but no e/o acute failure, continue home meds # osteoporosis: on zometa as an OP # paroxysmal a fib: currently appears to be in SR, continue BB, asa # FC--has advance directive on file, Ed is her MDPOA # observation status for now, patient may in fact require IP stay but to be determined Patient new to my care. Old records reviewed and summarized as above. Care plan reviewed with ER doctor as above.
[2019-01-19] MEDS: HYDROmorphONE/DILAUDID 1 MG/ML INJ IVP PRN ×2 (19:55→22:38)
[2019-01-19] MEDS: PRESERVISION AREDS2 FORMULA EYE VIT 1 EACH PO SCH (19:55)
[2019-01-19] MEDS: GABAPENTIN 300 MG CAP PO SCH (22:38)
[2019-01-19] MEDS: MELATONIN 3 MG TAB PO PRN (22:38)
[2019-01-20 04:34] LABS: PLATELET COUNT 188 10^3/uL (150-400)
[2019-01-20] MEDS: LEVOTHYROXINE 75 MCG TAB PO SCH (06:46)
[2019-01-20] MEDS: ENOXAPARIN 40 MG/0.4 ML SYR SC SCH (08:23)
[2019-01-20] MEDS: METOPROLOL SUCCINATE XR 50 MG TAB PO SCH (08:23)
[2019-01-20] MEDS: ASPIRIN 81 MG CHEWABLE TAB PO SCH (08:24)
[2019-01-20] MEDS: FUROSEMIDE 20 MG TAB PO SCH (08:24)
[2019-01-20] MEDS: LOSARTAN POTASSIUM 25 MG TAB PO SCH (08:24)
[2019-01-20] MEDS: GABAPENTIN 300 MG CAP PO SCH ×3 (08:24→21:23)
--- NOTE | 2019-01-20 09:57 | GCON ---
[f rep st] CONSULTATION NEUROLOGY CONSULT REFERRING PHYSICIAN: Ketty Naqvi MD CHIEF COMPLAINT: Bilateral lower extremity pain. 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 She was just seen by my colleague, Dr. Ishaan Ascencio on December for the same chief complaint. Please see initial consultation note for details. Essentially, she had been initiated on Revlimid and Velcade for her recent diagnosis of multiple myeloma. On January 08, she began having severe aching and some burning pain in her proximal bilateral lower extremities in the thighs, which has been going more distally over time. She feels like there is some weakness as well. She is not sure if the weakness is secondary to the pain or if she has independent weakness. She denies any vitor numbness. No symptoms in her trunk, abdomen, upper extremities or face. No back pain. It may be getting slightly better over time. The symptoms seem to have a vector of going from a proximal to distal pattern. Specifically, the pain was initially in the upper/proximal lower extremities and has progressed in a more distal fashion. REVIEW OF SYSTEMS: Ten-point review of systems only pertinent to the HPI. For past medical, social history, family history, home medications, allergies, see Dr. Naqvi's note. PHYSICAL EXAM: VITAL SIGNS: Blood pressure is elevated in the 170s systolic. She is afebrile at 36.6, respirations 16. GENERAL: No acute distress. Very pleasant. HIGHER MENTAL FUNCTION: She is awake and alert. She is fluent. No aphasia. CRANIAL NERVES: Face is symmetric. Facial sensation is intact. Extraocular movements are full. Tongue is midline. MOTOR: The patient participates fully with the upper extremities and has no focal weakness. In the lower extremities, participation is partial due to pain. There was some mild symmetric weakness at hip flexors. She is diffusely hyperreflexic in upper and lower extremities. Toes are intermittent bilaterally. Coordination is normal in the upper extremities. IMPRESSION/PLAN: 1. Bilateral lower extremity pain and weakness. 2. Multiple Myeloma The differential diagnosis includes chemotherapy-related peripheral neuropathy. The fact that it is slightly getting better being off chemotherapy, may be consistent with this diagnosis. I defer to Oncology in terms of further management of her chemotherapy if it is a side effect from her initial chemotherapy medications. We also discussed a mass lesion in the thoracic spine such as a plasmacytoma causing bilateral lower extremity pain and weakness. Leptomeningeal carcinomatosis is a rare but serious TERRITORY ACCOUNT EXECUTIVE complication of multiple myeloma and is on the differential diagnosis. Finally, a immune mediated inflammatory neuropathy syndrome is on the differential diagnosis. However, with these syndromes one would expect an opposite direction for propagation of symptoms. Specifically, there is typically an ascending rather than a descending vector for the symptoms. In any case, going forward I recommend thoracic spine MRI with and without contrast to assess for a mass, lumbar puncture with high-volume for cytology to test for leptomeningeal carcinomatosis. We will see if these show any significant abnormalities. I counseled the patient that we do not do inpatient EMG nerve conduction studies in regard to CIDP and we would need to transfer to the [facility] if we felt this test was indicated. They would like to do the first 2 tests and then see what we find. This is reasonable. We will follow up on the above results. Dr. Ascencio comes back on next week and she will likely still be here. At that point, if these tests are negative and he feels that an inpatient EMG/nerve conduction study needs to be done for possible inflammatory neuropathy, then he can consider transfer at that time. I have discussed this with the hospitalist team and with Oncology this morning. No further recommendations now. Please do not hesitate to call if there are any questions or changes in neurologic status. Seventy total minutes floor time; over 50% in direct counseling and coordination of care today. /[id number]/MODL MTDD
--- NOTE | 2019-01-20 10:44 | HOSPPROG ---
Hospitalist Progress Note Assessment/Plan: Multiple myeloma, paroxysmal Atrial fibrillation, diastolic CHF, hypertension, osteoporosis, history of left hip fracture The patient is a 83-year-old female with PMH multiple myeloma who was admitted for bilateral leg pain, generalized weakness, and inability to walk. ASSESSMENT/PLAN: Bilateral leg pain Gait instability Generalized weakness Multiple myeloma, on chemotherapy Paroxysmal AFib Diastolic CHF Hypertension, uncontrolled Osteoporosis History of left hip fracture with chronic left leg weakness -Discussed w/ Dr. Henao, Neurologist. -Order LP w/ cyto in AM. Holding Lovenox in AM for procedure. -Check MRI T spine wwo contrast today. -PT/OT. -DC IV fluids as pt is eating/drinking. -Follow BP -- add hydralazine prn -p.r.n. analgesics. May consider to increase gabapentin. VTE prophylaxis: Lovenox. Code Status: Full Code. Status: inpt for > 2 midnight stay as pt has inability to walk and needs further diagnostic testing prior to returning to SNF. Disposition: medsur with discharge anticipated in the next few days. ____ SUBJECTIVE: Today patient continues to have bilateral leg pain/weakness. OBJECTIVE: Physical Exam: General: The patient is an elderly female who is alert and in no acute distress. HEENT: normocephalic, extraocular movements intact, conjunctivae clear. Mucous membranes moist. Neck: trachea midline, no visible masses. CV: +S1/S2, RRR, no MRG. Resp: unlabored, CTAB no RRW. Abd: soft and nondistended. Musculoskeletal: Normal muscle tone/bulk. 4/5 strength R hip and R knee flexion /ext. 3/5 strength L hip and L knee flex/ext. Neuro: cranial nerves II - XII grossly intact. Intact gross motor and sensory function. Psych: Appropriate mood and appropriate affect. Skin: Mild pallor. No visible petechiae. +few ecchymoses noted. Heme/lymph: No pitting peripheral edema at bilateral lower extremities. Labs/Imaging/Other Tests: MRI report reviewed. Objective: Vital Signs Temp Pulse Resp BP Pulse Ox 36.4 C 63 16 193/77 H 92 01/20/19 07:17 01/20/19 08:23 01/20/19 07:17 01/20/19 08:24 01/20/19 07:17 Laboratory Results 01/20/19 04:06 01/20/19 04:06 01/19/19 01/20/19 01/21/19 05:59 05:59 05:59 Intake Total 768 Output Total 700 550 Balance 68 -550 - Time Spent With Patient Time Spent with Patient: greater than 35 minutes Time Spent with Patient: Greater than 35 minutes spent on this patients care, greater than 50% of time spent counseling, educating, and coordinating care regarding the above mentioned plan. ICD10 Worksheet Patient Problems: Problems Problem Status Onset Leg pain Acute Neuropathy associated with cancer Acute
--- NOTE | 2019-01-20 10:57 | GCON ---
[f rep st] CONSULTATION NEW PATIENT CONSULTATION PRIMARY ONCOLOGIST: Dr. Eliane Connor REASON FOR CONSULTATION: Patient with painful lower extremities with underlying multiple myeloma. HISTORY OF PRESENT ILLNESS: The patient was diagnosed with stage I IgG lambda myeloma in June 18, after she was found to have a monoclonal protein measuring 3.4 g/dL, which was identified during evaluation for osteoporosis and hypercalcemia. Ultimately, the hypercalcemia resolved with cessatio n of calcium supplements. She has a history of left femur, left wrist, left ankle fractures that had previously occurred on Fosamax. She was being treated for osteoporosis and receiving Prolia and marci cium supplements by Dr. Bowens. Labs at diagnosis revealed mild anemia with hemoglobin 11, normal calcium and creatinine. Albumin was 4, and beta 2 microglobulin was 3.03, total protein 9.3. SPEP r evealed monoclonal protein of 3.4. Weiser light chains were normal but lambda was elevated at 192 mg/ L with an abnormal light chain ratio of 0.04. Bone marrow biopsy showed 40% cellularity with 50% of cells consistent with lambda-restricted clonal plasma cell population. 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 Karyotype was normal. There were small foci suspicious but not diagnostic for amyloid deposition. Iron store s were decreased. UPEP showed normal 24-hour protein at 224 mg with monoclonal IgG lambda of 94 mg. Skeletal survey showed diffuse osteoporosis with mottled lucency, but no discrete lytic lesions. She was started on RVD lite in August 2018. She has tolerated it well, other than significant flui d retention and elevated BNP with the first cycle. She was seen by Dr. Jimbo Feliz. Echo showed no rmal systolic function, but some diastolic dysfunction. Symptoms and weight gain resolved with the a ddition of Lasix and losartan. She did have a rash with the first cycle of Revlimid, which resolved spontaneously. Zometa was started in September after receiving clearance from oral surgeon. Most recently, the patient was admitted for lower extremity pain and numbness consistent with neuropa thy. She was at [facility] last week diet, discharged on 01/15. It was felt that she had an atypical presentation of Velcade-associated neuropathy and has been off Velcade for the past 2 weeks. She did have a plain film x-ray of lower extremities showing osteoarthritis. She also had a n MRI of her lumbar spine showing degenerative joint disease but no evidence of plasmacytoma or cord compression, etc. Her most recent M spike is 0.6 from 01/12, which is dramatic improvement from initial presentation. Her CPK has been within normal limits. and patient give the history today and report that since stopping Velcade 2 weeks ago, pain h as not improved. Dr. Connor also stopped her Revlimid about a week ago and, again, pain continues. She had a fall along with the pain within the last day, which prompted recurrent admission. REVIEW OF SYSTEMS: The patient denies any chest pain or shortness of breath. She denies any back pa in. She denies any focal neurologic symptoms. The pain is primarily in the thighs but now below the knees. Pain is 4/10 today. The pain is described as burning pain. She has no swelling in her lowe r extremities. PAST MEDICAL HISTORY: Atrial fibrillation; multiple myeloma, as detailed above; diastolic CHF; hyper tension; and osteoporosis. PAST SURGICAL HISTORY: Cholecystectomy, hysterectomy, left hip fracture with repair last year, left ankle and wrist fracture, left TKA, , and lipoma removal. FAMILY HISTORY: Noncontributory. SMOKING STATUS: Never smoked. SOCIAL HISTORY: Is . Lives in [facility]. Five sons. 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 PHYSICAL EXAM: VITAL SIGNS: Today, vital signs show blood pressure of 193/77, heart rate is 63, res piratory rate 16, saturating 92% on room air, temp 36.4. GENERAL: An 83-year-old woman, looks her s tated age, not in acute distress. HEENT: Anicteric. Oropharynx is clear. HEART: Regular rate and rhythm. LUNGS: Clear to auscultation bilaterally. ABDOMEN: Soft, nontender. Bowel sounds positi ve. MUSCULOSKELETAL: Lower extremities: Mild bilateral nonpitting edema and venous stasis changes noted. She is able to move her extremities. She is not necessarily participating in extremity exam due to pain. NEUROLOGIC: Cranial nerves 2 through 12 grossly intact. SKIN: Without rash. LABS: CBC shows a white blood cell count of 5.8, hemoglobin 11.4, hematocrit 34.7, platelet count of 188,000. CMP shows sodium 134. Her creatinine is baseline at 0.6. C-reactive protein was noted to be 21.5. TSH 0.78, that was done in November. IMAGING: As detailed above. ASSESSMENT AND PLAN: The patient is a very pleasant 83-year-old woman with stage I IgG lambda multip le myeloma diagnosed in June 2018. She is admitted with bilateral lower extremity pain. 1. Pain. Initially thought to be an unusual presentation of neuropathy. Pain continues despite hol ding Revlimid and Velcade. Plan a lumbar puncture and magnetic resonance imaging cervical spine and thoracic spine to rule out any evidence of plasmacytoma or cord compression above the lumbar spine th at could be contributing to pain. Neurology consultation appreciated. Also discussed evaluation for a demyelinating disease, but cannot be done as an inpatient at [facility]. Will start with lumbar puncture and the magnetic resonance imagings, and recommend further evaluation from ther e. Her pain is better controlled with current medications. Tramadol and as-needed oxycodone. Patie nt prefers not to take narcotics. 2. Multiple myeloma. Has had a good response to RVD lite. Her M spike is significantly declined, m ost recent 0.6. If bilateral leg pain is felt due to current medications, certainly other second-cedric e therapies could be considered that would be efficacious. 3. Osteoporosis. Has been on Zometa. 4. Noted that initial bone marrow biopsy was small area suspicious for amyloid. This is noted. A r ecent echo with diastolic dysfunction only. 5. Elevated blood pressure per Internal Medicine. Will continue to monitor while in the hospital and follow up results of the above-mentioned testing. More than 40 minutes was spent with the patient, more than 50% of the time counseling and coordinatin g care. /[id number]/MODL
[2019-01-20] MEDS: PRESERVISION AREDS2 FORMULA EYE VIT 1 EACH PO SCH ×2 (12:00→21:23)
[2019-01-20] MEDS: CHOLECALCIFEROL VIT D3 1,000 UNITS TAB PO SCH (12:01)
[2019-01-20] MEDS ORDERED: hydrALAZINE 20 MG/ML VIAL IVP PRN (12:03)
[2019-01-20 12:12] LABS: INR 1.12 (0.83-1.16)
[2019-01-20] MEDS: CALCIUM CARB W/VIT D 500 MG TAB PO SCH (13:14)
[2019-01-20] MEDS ORDERED: GADOBUTROL 10 ML VIAL IVP ONE (13:27)
--- NOTE | 2019-01-20 14:56 | ASMTCMCOM ---
CM Note CM Note Notes: Pt's chart reviewed for d/c planning. Pt was admitted here last week in December for bilateral leg pain and d/jax 01/15to her home with home PT/OT. She and her did not see much improvement over that hospitalization and once home her pain began to worsen. due to this and increased weakness 2 days ago she transferred. to [facility] in [place]. Her pain continued to worsen and is now to the point where she cannot walk at all due to this. It is believed that she may be having chemotherapy induced peripheral neuropathy. She will undergo further testing. OT/PT have been ordered; CM will follow for recommendations D/C Plan: [facility], anticipate [facility] vs SNF Date Signed: 01/20/2019 02:56 PM Electronically Signed By:Felicita Smiley
[2019-01-20] MEDS: MELATONIN 3 MG TAB PO PRN (22:52)
[2019-01-21] MEDS: HYDROmorphONE/DILAUDID 1 MG/ML INJ IVP PRN ×3 (06:18→21:35)
[2019-01-21] MEDS: LEVOTHYROXINE 75 MCG TAB PO SCH (06:18)
[2019-01-21] MEDS: METOPROLOL SUCCINATE XR 50 MG TAB PO SCH (08:13)
[2019-01-21] MEDS: ASPIRIN 81 MG CHEWABLE TAB PO SCH (08:17)
[2019-01-21] MEDS: LOSARTAN POTASSIUM 25 MG TAB PO SCH (08:17)
[2019-01-21] MEDS: FUROSEMIDE 20 MG TAB PO SCH (08:18)
[2019-01-21] MEDS: GABAPENTIN 300 MG CAP PO SCH ×3 (08:19→19:50)
[2019-01-21] MEDS ORDERED: LOSARTAN POTASSIUM 25 MG TAB PO ONE (09:00)
[2019-01-21 09:25] LABS: INR 1.12 (0.83-1.16)
--- NOTE | 2019-01-21 10:22 | NEUROPROG ---
Assessment: 1. Multiple myeloma 2. Bilateral lower extremity pain 3. Thoracic vertebral body lesions The patient's thoracic spine MRI with and without contrast shows some lesions within the vertebral bodies; however, there is no direct compression of the cord. Therefore, these lesions would not explain her symptoms but need to be addressed further. They may represent metastatic lesions. I will defer to Oncology regarding to approach these lesions in terms of biopsy etc Her last dose of chemotherapy per her was 10 days ago. Therefore, this certainly may be a an acute neuropathy from chemotherapy which is taking time to resolve. However, we will proceed with workup as outlined in the consultation note. Specifically, later today she will have a lumbar puncture to examine cytology for possible leptomeningeal carcinomatosis. If she does not have leptomeningeal carcinomatosis, other differential diagnosis include autoimmune inflammatory polyneuropathy. My colleague Dr. Ascencio takes over the service tomorrow. I will sign this patient out to him. I will defer to his judgment regarding further evaluation of a inflammatory demyelinating polyneuropathy workup including possible transfer to [facility] for inpatient EMG and nerve conduction studies. Her pain is being treated with opiates and controlled with these medications. Recommend increasing gabapentin to 600 mg three times daily. 35 total minutes floor time; over 50% counseling and coordination of care. Subjective: Pain increased last night in proximal legs according to . Objective: Vital Signs Temp Pulse Resp BP Pulse Ox 36.6 C 90 17 160/90 H 94 01/21/19 07:34 01/21/19 08:13 01/21/19 07:34 01/21/19 08:17 01/21/19 07:34 Laboratory Results 01/21/19 09:40 01/20/19 04:06 01/20/19 01/21/19 01/22/19 05:59 05:59 05:59 Intake Total 768 1050 120 Output Total 700 1050 Balance 68 0 120 PT 14.0 SEC (12.0-15.0) 01/21/19 09:05 INR 1.12 (0.83-1.16) 01/21/19 09:05 The patient received morphine right before I examined the patient and she was sleeping soundly. I was requested not to wake her by family. Allergies/Adverse Reactions: Penicillins Allergy (Verified 01/19/19 15:57) Unknown
--- NOTE | 2019-01-21 10:53 | SOAPPROG ---
[facility] Progress Note Assessment/Plan: Assessment: 1) Multiple Myeloma (recently on RVD) 2) Bilateral lower extremity neuropathic pain 3) Small bone lesion seen on thoracic MRI Plan: MRI of the T spine does not demonstrate an obvious cause of her pain. There are small bone lesions noted that may or may not be related to her myeloma. At this time, I do not feel that these require further evaluation in this patient with known myeloma. She will have a diagnostic LP later today. If her LP is negative, then her pain is most likely neuropathy secondary to Velcade. This medication has been held, and hopefully this pain will gradually improve over time. For now agree with Neuro recommendation of increasing Gabapentin to 600 mg TID. Outpatient nerve conduction studies may be helpful. Our service will continue to follow patient. Patient/ family questions answered. 01/21/19 10:47 01/21/19 10:48 Subjective: Still with bilateral leg pain. /son at bedside Objective: Vital Signs Temp Pulse Resp BP Pulse Ox 36.6 C 90 17 160/90 H 94 01/21/19 07:34 01/21/19 08:13 01/21/19 07:34 01/21/19 08:17 01/21/19 07:34 Laboratory Results 01/21/19 09:40 01/20/19 04:06 01/20/19 01/21/19 01/22/19 05:59 05:59 05:59 Intake Total 768 1050 120 Output Total 700 1050 Balance 68 0 120 PT 14.0 SEC (12.0-15.0) 01/21/19 09:05 INR 1.12 (0.83-1.16) 01/21/19 09:05 - Time Spent With Patient Time Spent With Patient: 25 minutes Physical Exam - Physical Exam General Appearance: alert, no apparent distress EENT: PERRL/EOMI Abdomen: non-tender, soft Neuro/Psych: alert, normal mood/affect, oriented x 3 ICD10 Worksheet Patient Problems: Problems Problem Status Onset Leg pain Acute Neuropathy associated with cancer Acute
[2019-01-21] MEDS: CHOLECALCIFEROL VIT D3 1,000 UNITS TAB PO SCH (12:08)
[2019-01-21] MEDS: PRESERVISION AREDS2 FORMULA EYE VIT 1 EACH PO SCH ×2 (12:08→19:50)
[2019-01-21] MEDS: CALCIUM CARB W/VIT D 500 MG TAB PO SCH (12:09)
--- NOTE | 2019-01-21 13:35 | HOSPPROG ---
Hospitalist Progress Note Assessment/Plan: The patient is a 83-year-old female with PMH multiple myeloma who was admitted for bilateral leg pain, generalized weakness, and inability to walk. ASSESSMENT/PLAN: Bilateral leg neuropathic pain -DDx etiology - chemo AE, inflammatory/demyelinating neuropathy, metastasis Gait instability Generalized weakness Multiple myeloma, on chemotherapy Paroxysmal AFib Diastolic CHF Hypertension, uncontrolled, 2/2 pain Osteoporosis History of left hip fracture with chronic left leg weakness -Discussed w/ Dr. Henao, Neurologist and Dr. Finnegan Oncologist. They suspect the pain/weakness is 2/2 AE of Velcade, but still need to r/o alternate causes. Since EMG/NCS unavailable at this facility, pt may require either transfer to the [facility] or pursue outpt workup w/ [facility] Neurology. See their notes for further details. -LP w/ cyto today to r/o metastatic spread to spine. Held Lovenox in AM for procedure. FU results. -Discussed results of T spine MRI w/ pt/family today -- no evidence of metastasis to spine on imaging. -PT/OT. -Follow BP -- doubled losartan dose today to 50mg. -Increased gabapentin dose today. -p.r.n. analgesics. VTE prophylaxis: Lovenox. Code Status: Full Code. Status: inpt Disposition: medsurg with discharge anticipated in the next few days. ____ SUBJECTIVE: Today patient had severe, worse pain in early AM, received Dilaudid. OBJECTIVE: Physical Exam: General: The patient is an elderly female who is a bit sedated and in no acute distress. HEENT: normocephalic, extraocular movements intact, conjunctivae clear. Mucous membranes moist. Neck: trachea midline, no visible masses. Resp: unlabored. Abd: soft and nondistended. Musculoskeletal: Normal muscle tone/bulk. Nontender thighs/calves. Neuro: cranial nerves II - XII grossly intact. Psych: Appropriate mood and appropriate affect. Skin: Mild pallor. No visible petechiae. +few ecchymoses noted. Labs/Imaging/Other Tests: MRI report reviewed. Objective: Vital Signs Temp Pulse Resp BP Pulse Ox 36.6 C 54 L 16 116/59 L 90 L 01/21/19 11:11 01/21/19 11:11 01/21/19 11:11 01/21/19 11:11 01/21/19 11:11 Laboratory Results 01/21/19 09:40 01/20/19 04:06 01/20/19 01/21/19 01/22/19 05:59 05:59 05:59 Intake Total 768 1050 120 Output Total 700 1050 100 Balance 68 0 20 PT 14.0 SEC (12.0-15.0) 01/21/19 09:05 INR 1.12 (0.83-1.16) 01/21/19 09:05 - Time Spent With Patient Time Spent with Patient: greater than 35 minutes Time Spent with Patient: Greater than 35 minutes spent on this patients care, greater than 50% of time spent counseling, educating, and coordinating care regarding the above mentioned plan. ICD10 Worksheet Patient Problems: Problems Problem Status Onset Leg pain Acute Neuropathy associated with cancer Acute
--- NOTE | 2019-01-21 14:15 | PDMN ---
Medical Necessity Medical necessity: [facility] PGPM Pain Management: 83 yo w/ c/o B/L leg pain w/ gait instability in setting of multiple myeloma currently undergoing chemo w/ revlimid, velcade and dexamethasone. Onc and neuro consults. Initially OBS for workup/tx but pt still having issues with pain beyond OBS care, unable to walk, generalized weakness requiring IV opioids, PT/OT. Further dx testing required - LP with cyto in am. Etiology unclear, neuropathy secondary chemo vs. new leptomeningeal carcinomatosis. Meets [facility] IP criteria for PGPM as sufficient pain control not achieved during OBS care and poss new or deteriorating disease process as etiology requiring IP eval and tx. Hx afib, MM , dCHF, HTN, hip fx w/ repair, TKA, osteoporosis. Change to IP status 01/20/19@ 1037 per MD order.
[2019-01-21] MEDS ORDERED: LIDOCAINE 1% 300 MG/30 ML SDV ONE (16:04)
[2019-01-21] MEDS ORDERED: IOPAMIDOL (ISOVUE-M 300) 15 ML VIAL ONE (16:33)
[2019-01-21] MEDS: MELATONIN 3 MG TAB PO PRN (21:34)
[2019-01-22] MEDS: HYDROmorphONE/DILAUDID 1 MG/ML INJ IVP PRN ×2 (05:10→20:45)
[2019-01-22] MEDS: LEVOTHYROXINE 75 MCG TAB PO SCH (05:15)
--- NOTE | 2019-01-22 07:50 | NEUROPROG ---
Assessment: total unit time of 25 minutes. The patient has neuropathy that is not much different than 1 week ago. The increased pain is much better and should allow for more activity. The CSF is nonspecific at this point and is not clearly actionable at this point. We are awaiting the cytology. If she can be discharged then she can see me this week in the office for EMG for further detailing findings. I would not recommend adding immunosuppression at this point to treat the neuropathy that we believe is treatment related. Her current pain regiment seems to be working much better. Subjective: pt known to me from prior visit and reviewed all the notes. She says she slept well and had very good pain control over night. She does not feel weakness is worse but can have restless feeling in the legs during the evenings. Objective: Vital Signs Temp Pulse Resp BP Pulse Ox 36.6 C 59 L 18 154/84 H 94 01/22/19 04:56 01/22/19 04:56 01/22/19 04:56 01/22/19 05:17 01/22/19 04:56 Laboratory Results 01/21/19 09:40 01/21/19 01/22/19 01/23/19 05:59 05:59 05:59 Intake Total 1050 5520 Output Total 500 200 Balance 550 5320 PT 14.0 SEC (12.0-15.0) 01/21/19 09:05 INR 1.12 (0.83-1.16) 01/21/19 09:05 Areflexia is present with distal decrease in sensation. As before the left leg has severe proximal weakness and about 3-4/5 distal weakness. on the right, there is about 3/5 hip flexion and leg extension with 4/5 dorsiflexion and plantar flexion. MRI did not show source of problem in thoracic region. LP shows probably bloody tap with few WBCs, elevated protein, and several thousand red cells. The cytology is pending. Allergies/Adverse Reactions: Penicillins Allergy (Verified 01/19/19 15:57) Unknown
[2019-01-22] MEDS: METOPROLOL SUCCINATE XR 50 MG TAB PO SCH (08:10)
[2019-01-22] MEDS: ASPIRIN 81 MG CHEWABLE TAB PO SCH (08:10)
[2019-01-22] MEDS: GABAPENTIN 300 MG CAP PO SCH ×3 (08:10→20:45)
[2019-01-22] MEDS: LOSARTAN POTASSIUM 25 MG TAB PO SCH (08:11)
[2019-01-22] MEDS: FUROSEMIDE 20 MG TAB PO SCH (08:11)
[2019-01-22] MEDS: ENOXAPARIN 40 MG/0.4 ML SYR SC SCH (09:42)
[2019-01-22] MEDS: CHOLECALCIFEROL VIT D3 1,000 UNITS TAB PO SCH (12:17)
[2019-01-22] MEDS: PRESERVISION AREDS2 FORMULA EYE VIT 1 EACH PO SCH ×2 (12:17→20:46)
[2019-01-22] MEDS: CALCIUM CARB W/VIT D 500 MG TAB PO SCH (12:17)
--- NOTE | 2019-01-22 12:28 | HOSPPROG ---
Hospitalist Progress Note Assessment/Plan: The patient is a 83-year-old female with PMH multiple myeloma who was admitted for bilateral leg pain, generalized weakness, and inability to walk. It is felt that her neuropathic symptoms are likely due to her Velcade, although somewhat atypical reaction. She has improved with the higher dose of gabapentin # bilateral neuropathic leg pain and weakness. Appreciate neurology note, discussed with Neurology and Oncology * Will set up EMG to be done later today * Continue PT and OT with hopeful discharge to senior care and the next day or 2 * Pain control with gabapentin, consider palliative care consult as an outpatient * CSF reviewed, findings consistent with a traumatic tap. # multiple myeloma currently on chemotherapy, discussed with Oncology # paroxysmal atrial fibrillation # diastolic congestive heart failure # hypertension # osteoporosis # gait instability will need senior care at the time of discharge and ongoing PT. VTE prophylaxis: Lovenox. Code Status: Full Code. Status: inpt Disposition: [facility] with discharge anticipated in the next few days. Subjective: [place] new to [place] and [place] reviewed. Discussed and rounds and with Oncology and Neurology, pain is slightly improved today but has extreme weakness and difficulty ambulating. Objective: Vital Signs Temp Pulse Resp BP Pulse Ox 36.7 C 58 L 18 117/67 92 01/22/19 11:38 01/22/19 11:38 01/22/19 11:38 01/22/19 11:38 01/22/19 11:38 Laboratory Results 01/21/19 09:40 01/21/19 01/22/19 01/23/19 05:59 05:59 05:59 Intake Total 1050 5520 Output Total 500 200 Balance 550 5320 PT 14.0 SEC (12.0-15.0) 01/21/19 09:05 INR 1.12 (0.83-1.16) 01/21/19 09:05 - Physical Exam Constitutional: uncomfortable Eyes: PERRL Ears, Nose, Mouth, Throat: moist mucous membranes Cardiovascular: regular rate and rhythym Respiratory: no respiratory distress, clear to auscultation Gastrointestinal: soft, non-tender abdomen Genitourinary: no bladder fullness Skin: warm Musculoskeletal: generalized weakness Neurologic: AAOx3, weakness, numbness Psychiatric: interacting appropriately ICD10 Worksheet Patient Problems: Problems Problem Status Onset Neuropathy associated with cancer Acute Leg pain Acute
--- NOTE | 2019-01-22 12:44 | ASMTCMCOM ---
CM Note CM Note Notes: Patient plan of care reviewed in am rounds. Pain is improving. Likely to SNF soon. Spoke with patient and her regarding plan of care, don't feel quite ready for discharge today. [facility] in [place]. Patient has not had Palliative care consult as of yet and would benefit from support. Will discuss with MD. Plan: To SNF when medically cleared for discharge,\. Date Signed: 01/22/2019 11:25 AM Electronically Signed By:Latonya Barros RN
[2019-01-22] MEDS: oxyCODONE IR 5 MG TAB PO PRN (16:28)
--- NOTE | 2019-01-22 16:44 | NEUROPROG ---
Assessment: total unit time of 25 minutes. The patient has neuropathy that is not much different than 1 week ago. The increased pain is much better and should allow for more activity. The CSF is nonspecific at this point and is not clearly actionable at this point. We are awaiting the cytology. If she can be discharged then she can see me this week in the office for EMG for further detailing findings. I would not recommend adding immunosuppression at this point to treat the neuropathy that we believe is treatment related. Her current pain regiment seems to be working much better. Addendum with EMG now completed this afternoon. The EMG study today showed a nonspecific sensory and motor neuropathy with mostly changes of chronic denervation. She does not really have activation in the left proximal lower extremity which is not new. The degree of weakness is reflected in some mildly neurogenic recruitment patterns consistent with a neuropathy as opposed to a primary myopathic condition. Overall, this type pattern suggests some deconditioning in addition to the neuropathy is leading to type 2 muscular atrophy and additional weakness. This is not a pattern particularly specific but does not favor primary demyelinating neuropathy. It remains most suspicious to be related to chemotherapy exposure and stability and gradual improvement may occur, but I am unable to say with certainty. As noted before, I am not convinced of a role for specific immunotherapy to treat the neuropathy. The improved pain control seems to be critical for her rehabilitation efforts. All of this was discussed with the patient and her today. The total unit and [id number]-qu-tqrq time today was 60 min. Objective: Vital Signs Temp Pulse Resp BP Pulse Ox 36.7 C 62 18 134/65 H 92 01/22/19 16:00 01/22/19 16:00 01/22/19 16:00 01/22/19 16:00 01/22/19 16:00 Laboratory Results 01/21/19 09:40 01/21/19 01/22/19 01/23/19 05:59 05:59 05:59 Intake Total 1050 5520 Output Total 500 200 Balance 550 5320 PT 14.0 SEC (12.0-15.0) 01/21/19 09:05 INR 1.12 (0.83-1.16) 01/21/19 09:05 Allergies/Adverse Reactions: Penicillins Allergy (Verified 01/19/19 15:57) Unknown
--- NOTE | 2019-01-22 18:28 | SOAPPROG ---
SOAP Progress Note Assessment/Plan: Assessment: SOAP Progress Note Assessment/Plan: Assessment: 1) Multiple Myeloma (recently on RVD) 2) Bilateral lower extremity neuropathic pain 3) Small bone lesion seen on thoracic MRI Plan: Pain may be slightly improved with higher dose of gabapentin. She slept well last night with melatonin and dilaudid. 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 she will be having EMG studies later today. Neuro and Hospitalist appreciated. Patient/ family questions answered. Subjective: may be a bit better, still having pain though Objective: Vital Signs Temp Pulse Resp BP Pulse Ox 36.7 C 62 18 134/65 H 92 01/22/19 16:00 01/22/19 16:00 01/22/19 16:00 01/22/19 16:00 01/22/19 16:00 Laboratory Results 01/21/19 09:40 01/21/19 01/22/19 01/23/19 05:59 05:59 05:59 Intake Total 1050 5520 700 Output Total 500 200 100 Balance 550 5320 600 PT 14.0 SEC (12.0-15.0) 01/21/19 09:05 INR 1.12 (0.83-1.16) 01/21/19 09:05 Physical Exam - Physical Exam General Appearance: no apparent distress Respiratory: lungs clear Abdomen: non-tender, soft Neuro/Psych: other (laying in bed, able to move lower extremities) ICD10 Worksheet Patient Problems: Problems Problem Status Onset Leg pain Acute Neuropathy associated with cancer Acute
[2019-01-22] MEDS: MELATONIN 3 MG TAB PO PRN (20:46)
[2019-01-23] MEDS: HYDROmorphONE/DILAUDID 1 MG/ML INJ IVP PRN ×2 (00:30→06:37)
[2019-01-23] MEDS: LEVOTHYROXINE 75 MCG TAB PO SCH (06:35)
[2019-01-23] MEDS: oxyCODONE IR 5 MG TAB PO PRN ×2 (06:35→14:55)
[2019-01-23] MEDS: METOPROLOL SUCCINATE XR 50 MG TAB PO SCH (08:19)
[2019-01-23] MEDS: LOSARTAN POTASSIUM 25 MG TAB PO SCH (08:20)
[2019-01-23] MEDS: FUROSEMIDE 20 MG TAB PO SCH (08:20)
[2019-01-23] MEDS: GABAPENTIN 300 MG CAP PO SCH ×3 (08:20→22:17)
[2019-01-23] MEDS: ENOXAPARIN 40 MG/0.4 ML SYR SC SCH (08:21)
[2019-01-23] MEDS: ASPIRIN 81 MG CHEWABLE TAB PO SCH (08:21)
--- NOTE | 2019-01-23 09:16 | NEUROPROG ---
Assessment: total unit time of 25 minutes. The patient has neuropathy that is not much different than 1 week ago. The increased pain is much better and should allow for more activity. The CSF is nonspecific at this point and is not clearly actionable at this point. We are awaiting the cytology. If she can be discharged then she can see me this week in the office for EMG for further detailing findings. I would not recommend adding immunosuppression at this point to treat the neuropathy that we believe is treatment related. Her current pain regiment seems to be working much better. Addendum with EMG now completed this afternoon. The EMG study today showed a nonspecific sensory and motor neuropathy with mostly changes of chronic denervation. She does not really have activation in the left proximal lower extremity which is not new. The degree of weakness is reflected in some mildly neurogenic recruitment patterns consistent with a neuropathy as opposed to a primary myopathic condition. Overall, this type pattern suggests some deconditioning in addition to the neuropathy is leading to type 2 muscular atrophy and additional weakness. This is not a pattern particularly specific but does not favor primary demyelinating neuropathy. It remains most suspicious to be related to chemotherapy exposure and stability and gradual improvement may occur, but I am unable to say with certainty. As noted before, I am not convinced of a role for specific immunotherapy to treat the neuropathy. The improved pain control seems to be critical for her rehabilitation efforts. All of this was discussed with the patient and her today. The total unit and jrxd-xh-[id number] time today was 60 min. 01/23/19: Total unit time today of 25 min. 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 There isn't clearly a role for immunosuppressive therapy or any specific treatment for this neuropathy. Cytology is pending, but no structural lesions are evident to explain this. I would continue to support active pain management strategies and suggest a palliative care consultation to work on further strategies of pain management to improve quality of life inability to exercise. Weakness will continue to progress if she is unable to move and become more active even if the neuropathy slowly improves. Subjective: The patient reports that she did not have a good night in terms of pain control. Otherwise there has not been any change. Objective: Vital Signs Temp Pulse Resp BP Pulse Ox 36.6 C 64 15 148/77 H 94 01/23/19 08:00 01/23/19 08:19 01/23/19 08:00 01/23/19 08:20 01/23/19 08:00 Laboratory Results 01/21/19 09:40 01/22/19 01/23/19 01/24/19 05:59 05:59 05:59 Intake Total 5520 700 150 Output Total 200 400 Balance 5320 300 150 PT 14.0 SEC (12.0-15.0) 01/21/19 09:05 INR 1.12 (0.83-1.16) 01/21/19 09:05 She continues to demonstrate the same degree of asymmetric weakness in the lower extremities but also proximal upper extremity weakness. As documented yesterday, her EMG shows nonspecific features of neuropathy but nothing to suggest a role for immunotherapy. There was not severe, irreversible type changes evident. Allergies/Adverse Reactions: Penicillins Allergy (Verified 01/19/19 15:57) Unknown
[2019-01-23] MEDS: traMADol 50 MG TAB PO PRN (09:35)
--- NOTE | 2019-01-23 11:06 | SOAPPROG ---
SOAP Progress Note Assessment/Plan: Assessment: SOAP Progress Note Assessment/Plan: Assessment: 1) Multiple Myeloma (recently on RVD) 2) Bilateral lower extremity neuropathic pain 3) Small bone lesion seen on thoracic MRI Plan: Still with significant pain. received IV dilaudid last night, with less relief. On gabapentin 600 mg TID with prn dilaudid. Will try changing IV dilaudid to oral. Encouraged patient to take it as needed, she has been hesitant due to concerns of addiction. 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 She and her are concerned pain isn't yet well controlled, but agree to transition to oral. When ready for discharge, likely back to SNF for PT/OT. Patient/ family questions answered. 01/23/19 11:03 01/23/19 11:07 Subjective: appears fatigued, discouraged Objective: Vital Signs Temp Pulse Resp BP Pulse Ox 36.6 C 64 15 148/77 H 94 01/23/19 08:00 01/23/19 08:19 01/23/19 08:00 01/23/19 08:20 01/23/19 08:00 Laboratory Results 01/21/19 09:40 01/22/19 01/23/19 01/24/19 05:59 05:59 05:59 Intake Total 5520 700 150 Output Total 200 400 Balance 5320 300 150 PT 14.0 SEC (12.0-15.0) 01/21/19 09:05 INR 1.12 (0.83-1.16) 01/21/19 09:05 Physical Exam - Physical Exam General Appearance: alert Respiratory: lungs clear Abdomen: non-tender, soft ICD10 Worksheet Patient Problems: Problems Problem Status Onset Leg pain Acute Neuropathy associated with cancer Acute
--- NOTE | 2019-01-23 11:37 | HOSPPROG ---
Hospitalist Progress Note Assessment/Plan: The patient is a 83-year-old female with PMH multiple myeloma who was admitted for bilateral leg pain, generalized weakness, and inability to walk. It is felt that her neuropathic symptoms are likely due to her Velcade, although somewhat atypical reaction. She has improved a little with the higher dose of gabapentin # bilateral neuropathic leg pain and weakness. Appreciate neurology note, discussed with Neurology and Oncology * EMG done and report reviewed. * Continue PT and OT with hopeful discharge to nursing home and the next day or 2 * Pain control is not optimal as she still needs IV Dilaudid. Will consult palliative and given her re-admission would prefer to transition in hospital to ensure good pain relief, tolerance without significant adverse effects and decreased need fo IV pain medication. * CSF reviewed, findings consistent with a traumatic tap. Cytology pending. # multiple myeloma chemo on hold as thought to be causing neuropathy, discussed with Oncology # paroxysmal atrial fibrillation # diastolic congestive heart failure # hypertension # osteoporosis # gait instability will need nursing home at the time of discharge and ongoing PT. VTE prophylaxis: Lovenox. Code Status: Full Code. Status: inpt [facility] with discharge anticipated in the next few days. Subjective: Continues to have severe pain overnight despite getting IV Dilaudid. Palliative care consult and will see her today to review her pain medications and adjust her regimen. Objective: Vital Signs Temp Pulse Resp BP Pulse Ox 36.7 C 59 L 16 100/51 L 91 L 01/23/19 11:03 01/23/19 11:03 01/23/19 11:03 01/23/19 11:03 01/23/19 11:03 Laboratory Results 01/21/19 09:40 01/22/19 01/23/19 01/24/19 05:59 05:59 05:59 Intake Total 5520 700 150 Output Total 200 400 Balance 5320 300 150 PT 14.0 SEC (12.0-15.0) 01/21/19 09:05 INR 1.12 (0.83-1.16) 01/21/19 09:05 - Physical Exam Constitutional: chronically ill appearing Eyes: PERRL Ears, Nose, Mouth, Throat: moist mucous membranes Cardiovascular: regular rate and rhythym Respiratory: no respiratory distress, clear to auscultation Gastrointestinal: soft, non-tender abdomen Genitourinary: no bladder fullness Skin: normal color Musculoskeletal: generalized weakness Neurologic: AAOx3 Psychiatric: interacting appropriately ICD10 Worksheet Patient Problems: Problems Problem Status Onset Neuropathy associated with cancer Acute Leg pain Acute
--- NOTE | 2019-01-23 12:23 | ASMTCMCOM ---
CM Note CM Note Notes: Plan of care reviewed in rounds. Paliative care order via [facility] to [facility]. Plan dc to [facility] later today aftger seen by Palliative care. CM to follow. Plan: DC to [facility] with palliative care support. Date Signed: 01/23/2019 12:22 PM Electronically Signed By:Latonya Barros RN
[2019-01-23] MEDS: CALCIUM CARB W/VIT D 500 MG TAB PO SCH (12:36)
[2019-01-23] MEDS: CHOLECALCIFEROL VIT D3 1,000 UNITS TAB PO SCH (12:36)
[2019-01-23] MEDS: PRESERVISION AREDS2 FORMULA EYE VIT 1 EACH PO SCH ×2 (12:36→22:16)
[2019-01-23] MEDS: CAPSACIAN 0.075% CREAM TP SCH ×2 (14:56→22:19)
--- NOTE | 2019-01-23 15:13 | GCON ---
[f rep st] CONSULTATION PALLIATIVE MEDICINE CONSULT DATE OF CONSULTATION: 01/23/2019 CHIEF COMPLAINT: Dr. Paulette Poole requests assistance with symptom management of patient's neuropathic pain. 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 Her multiple myeloma was just diagnosed in early September of 2018. Her neuropathy began around 3-4 weeks ago. It started in her bilateral thighs and moved down her calves to her feet. It is also present in her hands, primarily in her fingers. She describes it as a burning sensation. She was in the hospital for this pain a little more than a week ago and discharged on January 15; however, returned because of unrelenting pain. She had been at rehabilitation and the pain prevented her from doing any sort of therapy. She says, regarding the pain "it hurts like all get out." She reports she had a bad night of sleep last night and she blames it on the fact that she did not "follow up" on her pain medications. She tells me that she started gabapentin 100 mg p.o. at bedtime around 3 weeks ago and has been titrated up to 600 mg 3 times daily. While she feels it has helped a little bit , her seems to have a different opinion. On average, 2 weeks ago, she rated her pain as 6/10 and currently she rates her average pain a 4/10. Her seems to feel the improvement is most attributed to opioid use. The pain can become excruciating, especially at night while sleeping, and reach an 8 /10 to 9/10. She has used oxycodone with some pain relief as well as the IV Dilaudid. When the pain flares she finds it absolutely intolerable. She can do nothing but cry. She tries distraction by rubbing her legs but it is minimally helpful. She denies any problems with constipation. She has had some intermittent nausea related to the opioids but this is managed with Zofran. She has a poor appetite and has probably been losing weight; however, she is uncertain of this. Her clothes are fitting more loosely. She says her baseline weight is around 164 to 165 pounds. Her believes it is closer to 170. They monitor her weight closely because of her diastolic heart failure. She denies any problems with her breathing or cough currently. She denies any cardiac problems currently, with the exception of chronic, well- controlled heart failure. She denies vision changes, swallowing changes or headaches. ROS: As indicated in the HPI. PAST MEDICAL HISTORY: 1. Diastolic congestive heart failure. Followed by Dr. Tabares. 2. Hypothyroidism. 3. Atrial fibrillation. 4. Multiple myeloma recently diagnosed. 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 I reviewed code status with her and her , and they are clear she wishes to have no attempts at resuscitation. Her is her medical power of regulatory attorney. They have been for 60 years and they have 5 sons. Four of the 5 children live in [place]. Their 5th son lives in [place] and his was recently diagnosed with a very rare form of cancer. FAMILY HISTORY: Her mother at the age of 91 from old age. Her father at the age of 54 from heart failure. ALLERGIES: Penicillin. CURRENT MEDICATIONS: Reviewed in [facility] and include acetaminophen; aspirin; calcium with vitamin D as well as a vitamin D supplement; Lovenox; Lasix; Neurontin 600 mg 3 times daily; Dilaudid 0.2 mg IV push, which she has received twice in the past 24 hours; ibuprofen as needed; levothyroxine 75 mcg daily; losartan 50 mg daily; melatonin 3-6 mg at bedtime as needed; Toprol-XL 200 mg daily; multivitamin; Zofran as needed; oxycodone 2.5 mg to 5 mg every 3 hours as needed; promethazine as needed; tramadol 100 mg every 6 hours as needed. PHYSICAL EXAM: VITAL SIGNS: Blood pressure of 100/51, heart rate of 59, respiratory rate of 16, and she is currently saturating 91% on room air. GENERAL: She is pleasant, upbeat and engaging. No apparent distress. Alert and oriented x3. Appropriate affect and level of understanding. HEENT: Normocephalic/atraumatic. Very mild temporal wasting. Appears stated age. There is no scleral icterus. Hearing is intact. CARDIOVASCULAR: Bradycardic but regular. There is no significant lower extremity edema. She has intact pedal pulses bilaterally. RESPIRATORY: Mildly coarse in the bases but overall clear with adequate effort and expansion. MUSCULOSKELETAL: She is able to move all extremities without difficulty. She has poor trunk strength and needs assistance to sit upright in bed. NEUROLOGIC: Cranial nerves 2-12 are grossly intact. She has intact sensation to light touch in her toes bilaterally. SIGNIFICANT LABORATORY DATA: Her creatinine is 0.6. ASSESSMENT AND PLAN: This is an 83-year-old woman who is suffering from severe neuropathic pain related to chemotherapy treatment for her multiple myeloma. She has tried gabapentin with minimal relief. In addition, she has tried tramadol, and oxycodone and intravenous Dilaudid. 1. Neuropathic pain. I advised the patient to use oxycodone for breakthrough pain as opposed to the oral tramadol or IV Dilaudid. I based this recommendation on the fact that oxycodone has a longer duration of effect as opposed to IV Dilaudid and in addition it has a better side effect and drug interaction profile as compared to tramadol. She reports that she has found the oxycodone more effective than the tramadol. While the oxycodone and Dilaudid appear to be equally beneficial, she has noted faster onset of action with Dilaudid, however, she has also noted that it does not last very long. She is agreeable to trying the oxycodone as needed for breakthrough pain. In addition, I discussed with the patient the need for a more consistent long- acting pain regimen. I recommended methadone, which is an opioid that also has the ability to manage neuropathic pain better than other opioids. I explained that it has a long half life, and she might not feel any effect after the first dose but it may take up to 5 doses before it reached a steady state in her blood. She was agreeable to trying this at bedtime and assessing its effect. With regard to opioids, I shared with her that methadone, Dilaudid and oxycodone were all opioids and similar in mechanism of action and risk/benefit profile just as different types of apples, for example Brenner, Envy or [place] are all apples with the same nutritional benefits. She is not currently experiencing constipation but this should be monitored for closely. I also spoke with the patient and her regarding switching to Lyrica from gabapentin. I reached out to their insurance plan to determine what the change in co-pay would be. Currently for a 30-day supply of gabapentin at 600 mg 3 times daily, they have a $10 co-pay. For Lyrica 75 mg twice daily, the co-pay for 30-day supply would be $47. Depending upon the effect of methadone, a taper off gabapentin to be replaced with Lyrica could be considered, and I will follow up with the patient and family to further discuss this at an outpatient visit while she is at rehabilitation. Consideration of the co-pay will be given. In addition, I recommended a trial of capsaicin cream specifically to her calves and feet where the pain seems to be greatest at this point. I have ordered this to start 3 times daily. 2. Goals of care: The patient and were quite clear that she wishes to be do not attempt resuscitation. She recognizes that in order to manage her pain, she is going to have to use "the hard stuff." She has a granddaughter who is a pharmacy retail support specialist who has also expressed concern about her grandmother being on opioids. Again, I used the allegory between different types of apples as an explanation for different types of opioids, all being very similar with the same risk/benefit profile. The patient is hoping to get stronger and continue to pursue treatment as long as her quality of life remains acceptable. Please note that greater than 100 minutes was spent in this consult including reaching out to their insurance plan to determine different co-pays, coordinating care with her hospitalist attending and oncologist. /[id number]/MODL MTDD
[2019-01-23] MEDS ORDERED: METHADONE HCL 5 MG TAB PO SCH (21:00)
[2019-01-24] MEDS: traMADol 50 MG TAB PO PRN (04:24)
[2019-01-24] MEDS: LEVOTHYROXINE 75 MCG TAB PO SCH (04:24)
[2019-01-24] MEDS: oxyCODONE IR 5 MG TAB PO PRN (05:17)
[2019-01-24 07:49] VITALS: BP 153/86
[2019-01-24] MEDS: ASPIRIN 81 MG CHEWABLE TAB PO SCH (08:09)
[2019-01-24] MEDS: FUROSEMIDE 20 MG TAB PO SCH (08:09)
[2019-01-24] MEDS: METOPROLOL SUCCINATE XR 50 MG TAB PO SCH (08:09)
[2019-01-24] MEDS: GABAPENTIN 300 MG CAP PO SCH (08:09)
[2019-01-24] MEDS: LOSARTAN POTASSIUM 25 MG TAB PO SCH (08:09)
[2019-01-24] MEDS: CAPSACIAN 0.075% CREAM TP SCH (08:10)
[2019-01-24] MEDS: ENOXAPARIN 40 MG/0.4 ML SYR SC SCH (08:10)
[2019-01-24] MEDS: PRESERVISION AREDS2 FORMULA EYE VIT 1 EACH PO SCH (11:25)
[2019-01-24] MEDS: CHOLECALCIFEROL VIT D3 1,000 UNITS TAB PO SCH (11:25)
[2019-01-24] MEDS: CALCIUM CARB W/VIT D 500 MG TAB PO SCH (11:25)
--- NOTE | 2019-01-24 11:58 | PDDCSUM ---
Discharge Summary Discharge Summary: Date of Admission: 01/19/2019 Date of Discharge: 01/24/2019 Consultants: oncology, neurology, palliative care Procedures: lumbar puncture Studies: thoracic spine MRI, EMG Discharge Diagnoses: 1. 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 Deconditioning/generalized weakness 3. Multiple myeloma, therapy on hold 4. 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 Paroxysmal atrial fibrillation 6. Chronic diastolic CHF 7. HTN 8. Osteoporosis Brief Hospital Course: 83yo F with multiple myeloma recently on therapy with RVD (revlimid, velcade, dexamethasone) presents with bilateral leg pain. Just hospitalized for same issue but pain so severe she couldn't walk at SNF so she returned. She underwent thoracic spine MRI which did not show any structural lesions to explain symptoms. Lumbar puncture was a traumatic tap; cytology was negative. EMG demonstrated non-specific sensory and motor neuropathy; neurology felt most suspicious for chemotherapy as the culprit of her neuropathy, specifically her velcade. Neurology did not feel that there was any role for immunosuppressive therapy or any specific treatment for her neuropathy other than pain control. Palliative care was consulted for help with this. She was started on low-dose methadone, her gabapentin was increased, and she was switched from tramadol to oxycodone. Her pain was controlled at time of discharge. She is discharging to [facility]. Medications: Please refer to EMR for complete list. I have stopped her tramadol. New additions this admission include: 1. Methadone 2.5mg daily 2. Oxycodone 2.5-5mg q3h PRN 3. Gabapentin 600mg TID (increased from 300mg) 4. Capsaicin cream TID Follow Up Plan: 1. [facility] clinic visit on 02/[address] Jamilah Hernandez of [facility] plans to continue to see patient as well Physical Exam: Vitals reviewed, afebrile. Alert and oriented, generalized weakness but no focal deficits. RRR, lungs clear, abdomen soft and nt, trace BLE edema.
--- NOTE | 2019-01-24 11:58 | PDIAF ---
- Diagnosis Code Status: Do Not Resuscitate - Medication Management Additional Medication Instructions: New Medications: Methadone 2.5mg daily. Oxycodone 2.5-5mg q3h PRN. Capsaicin cream TID (apply to legs). Increased gabapentin dose from 300mg to 600mg TID. Discharge Medications: electronically signed and located in the Home Medication List. PICC Care - Routine: N/A - Orders Services needed: Physical Therapy, Occupational Therapy Isolation Type: None Diet Recommendation: no restrictions on diet Diet Texture: Regular Texture Diet Pabon: Not applicable Additional Instructions: Follow up with [facility] as planned at the end of January. Dr Jamilah Hernandez (palliative care) plans to continue to see you while at rehab. - Follow Up Care Current Providers and Referrals: Patient,NotPresent [Unknown] - As per Instructions
--- NOTE | 2019-01-24 12:27 | ASMTLACE ---
LACE Length of stay for Answers: 4-6 days current admission Acuity / Level of Answers: Yes Care: Did the patient have an inpatient admission? Comorbidities - select Answers: Any tumor (including all that apply lymphoma or leukemia) Congestive heart failure Other Notes: HTN; AFib # of Emergency department Answers: 1-2 visits in the last 6 months Score: 13 Date Signed: 01/24/2019 12:26 PM Electronically Signed By:Latonya Barros RN
--- NOTE | 2019-01-24 12:38 | ASMTDCNOTE ---
Case Management Discharge Discharge Order Complete? Answers: Yes Patient to Obtain Answers: Other Notes: SNF Medications Transportation Arranged Answers: Other Notes: wheelchair van Transport will Pick (Date 01/24/2019 02:00 AM & Time) Faxed Final Orders Answers: Yes Agency/Facility Transfer Answers: Yes Report Printed & Faxed to Receiving Agency Family Notified Answers: Yes Discharge Comments Notes: Patient medically cleared for discharge to [facility]. Transport at 2pm via wheelchair van. RN to call report. B[place]heva orders via [employer]. Date Signed: 01/24/2019 12:37 PM Electronically Signed By:Latonya Barros RN
--- NOTE | 2019-01-24 12:47 | SOAPPROG ---
SOAP Progress Note Assessment/Plan: A/P: 1) Multiple Myeloma (recently on RVD) 2) Bilateral lower extremity neuropathic pain Discharge to SNF for PT/OT. Appreciate Dr. Hernandez's assistance. 01/24/19 12:46 Subjective: Dressed and ready for d/c. Gen: NAD. Objective: Vital Signs Temp Pulse Resp BP Pulse Ox 36.7 C 58 L 16 153/86 H 96 01/24/19 07:47 01/24/19 08:09 01/24/19 07:47 01/24/19 08:09 01/24/19 07:47 Laboratory Results 01/21/19 09:40 01/23/19 01/24/19 01/25/19 05:59 05:59 05:59 Intake Total 700 1100 Output Total 400 400 200 Balance 300 700 -200 PT 14.0 SEC (12.0-15.0) 01/21/19 09:05 INR 1.12 (0.83-1.16) 01/21/19 09:05 ICD10 Worksheet Patient Problems: Problems Problem Status Onset Leg pain Acute Neuropathy associated with cancer Acute
== END 2019-01-24 14:55 | DRG 74 ==
LOC: EDUNIT# → F1N 18:28 → OBSVTOIN 01-20 10:37
PROVIDERS: ADMIT Internal Medicine; ATTEND Internal Medicine
PROC: 009U3ZX Drainage of Spinal Canal, Percutaneous Approach, Diagnostic (ICD-10-PCS; principal; 2019-01-21)
DX: G57.93 Unspecified mononeuropathy of bilateral lower limbs (principal); T45.1X5A Adverse effect of antineoplastic and immunosuppressive drugs, initial encounter; C90.00 Multiple myeloma not having achieved remission; I50.32 Chronic diastolic (congestive) heart failure; R53.1 Weakness; I48.0 Paroxysmal atrial fibrillation; I11.0 Hypertensive heart disease with heart failure; E03.9 Hypothyroidism, unspecified; M81.0 Age-related osteoporosis without current pathological fracture; Z79.899 Other long term (current) drug therapy
CPT/HCPCS: 97110-GP; 97116-GP; 97161-GP; 97166-GO; 97530-GO; 97530-GP; 97535-GO; A9585; G0378; J1170; J1650; J2405; Q9967